=== PATIENT | female | born 1940 | race African-American/Black ===

== ENCOUNTER 2017-04-15 10:07 | Observation (INO) | payer OTHER ==
[2017-04-15 10:14] VITALS: BMI 32.5
--- NOTE | 2017-04-15 10:37 | DR.HTN ---
HPI - Time Seen Time seen: 10:35 - Primary Care Physician Primary Care Physician: DELMIS PARKER - HPI Comment HPI Comment: PATIENTS SYMTOMS GETTING WORSE. NO FEVER. NO N/V/D. SLIGHT DIZZINESS AND EXERSIONAL DYSPNEA. - Complaints Chief Complaint Doctors Comments: GENERALIZE WEAKNESS, FATIGUE, ELEVATED BP AND URINARY URGENCY SINCE YESTERDAY. Chief Complaint:: PT. C/O HIGH BLOOD PRESSURE, URINARY URGENCY, AND FATIGUE. - Reviewed Nurses Notes Reviewed: Yes - Source History Provided: Patient - Mode of Arrival Mode of Arrival: Ambulatory - Timing Onset of Chief Complaint: 04/14/17 - Severity Severity: Moderate - Context Circumstances: Spontaneous Onset Treatment of HTN Prior to Arrival: Taking meds as prescribed - Associated Signs and Symptoms HTN Associated Signs and Symptoms: Dizziness, Weakness, Shortness of Breath PMH - PMH Past Medical History: Yes Past Medical History: Asthma, Hypertension Past Surgical History: Yes Surgical History: Abdominal Surgery - Family History History of Family Medical Conditions: Yes Family Medical History: Heart Failure, Hypertension - Social History Does patient currently use any type of tobacco product: No Have you used tobacco products in the last 12 months: No Type of Tobacco Use: None Does any household member use tobacco: No Alcohol Use: None Do you use any recreational Drugs:: No Lives With: Spouse Lives Where: Home - infectious screening In the last 2 months have you had wt loss of >10#?: NO Have you had fever, night sweats or hemotysis?: No Have you traveled outside the country in the last 6 months?: No Isolation: Standard ROS - Review of Systems Constitutional: Weakness, Fatigue, Loss of Appetite. negative: Chills, Fever Eyes: No Symptoms Reported. negative: Eye Pain, Discharge ENTM: No Symptoms Reported. negative: Ear Pain, Nose Discharge, Nose Congestion , Throat Pain Respiratoy: Non-Productive Cough, Short of Breath. negative: Productive Cough, Wheezing, Hemoptysis Cardiovascular: Edema (TRACE). negative: Chest Pain Gastrointestinal/Abdominal: No Symptoms Reported. negative: Abdominal Pain, Diarrhea, Nausea, Vomiting Genitourinary: No Symptoms Reported. negative: Dysuria, Frequency, Hematuria Neurological: Weakness, Dizziness Musculoskeletal: Back Pain, Muscle Pain Integumentary: No Symptoms Reported Hematologic/Lymphatic: No Symptoms Reported Endocrine: No Symptoms Reported All Other Systems: Reviewed and Negative PE - Vital Signs Vitals: Temperature 98.1 F Pulse Rate [Left Radial] 58 Pulse Rate 94 Respiratory Rate 16 Blood Pressure [Left Arm] 156/98 Blood Pressure [Right Arm] 133/65 Blood Pressure 159/94 O2 Sat by Pulse Oximetry 96 - General Limitations: No Limitations General Appearance: Alert - Head Head Exam: Normal Inspection - Eyes Eye exam: Normal Appearance Pupils: Regular, Round: Bilateral, Reactive: Bilateral Sclera/Conjunctival: Normal Inspection: Bilateral - ENT ENT Exam: Normal External Ear Exam - Neck Neck Exam: Trachea Midline - Chest Chest Inspection: Symmetric Chest Wall Rise - Respiratory Respiratory Exam: Normal Lung Sounds Bilat Respiratory Exam: Bilateral Clear to Auscultation - Cardiovascular Cardiovascular Exam: Regular Rate, Normal Rhythm, Normal Heart Sounds - Abdominal Exam Abdominal Exam: Normal Bowel Sounds, Soft. negative: Tenderness - Extremities Extremities Exam: Edema - Back Back Exam: Normal Inspection - Neurologic Neurological Exam: Oriented X3 Speech: Fluid Speech Cranial Nerve Exam: EOM Function (II, III, IV, ): Normal, Facial Sensation (V) : Normal, Facial Palsy (VII): Normal, Gag reflex (XI): Normal, Spinal Accessory Function (XI): Normal, Tongue Deviation: Normal Motor Strength - LUE: 5/5 Motor Strength - RUE: 5/5 Motor Strength - LLE: 5/5 Motor Strength - RLE: 5/5 Upper Motor Neuron Exam: Babinski Sign: Normal DTR: achilles tendon (L): 4+, achilles tendon (R): 4+, brachioradialis (L): 4+, brachioradialis (R): 4+, Patellar (L): 4+, patellar (R): 4+ - Psychiatric Psychiatric Exam: Normal Affect, Normal Mood - Skin Skin Exam: Normal Color MDM - Differential Diagnosis Differential Diagnosis: CHF, Hyertension, essential Differential Diagnosis Comment: GENERALIZE WEAKNESS, RI, PNEUMONIA, UTI Course - Treatment Treatment: SEE ORDERS - Consultation Consultation Comments: DISCUSS PATIENT WITH DR. DAVIES. HE WILL ADMIT PATIENT. - Education/Counseling Education/Counseling: Patient, Education Educated On: Diagnosis ROR - Labs Reviewed Laboratory Results Reviewed?: Yes Result Diagrams: 04/16/17 03:10 04/16/17 03:10 Laboratory: WBC 6.3 X10^3/uL (3.6-10.0) 04/16/17 03:10 RBC 5.80 X10^6/uL (3.5-5.4) H 04/16/17 03:10 Hgb 13.0 g/dL (12.0-16.0) 04/16/17 03:10 Hct 41.1 % (36.0-47.0) 04/16/17 03:10 MCV 70.9 fL (80.0-100.0) L 04/16/17 03:10 MCH 22.5 pg (27.0-34.0) L 04/16/17 03:10 MCHC 31.7 g/dL (33.0-35.0) L 04/16/17 03:10 RDW 17.2 % (11.6-16.5) H 04/16/17 03:10 Plt Count 173 X10^3/uL (150.0-450.0) 04/16/17 03:10 Plt Count Comment Adequate (ADEQUATE) 04/16/17 03:10 MPV 9.7 fL (7.4-11.0) 04/16/17 03:10 Neut % 59.2 % (42.0-75.0) 04/16/17 03:10 Lymph % 28.8 % (21.0-51.0) 04/16/17 03:10 [place] % 9.5 % (0.0-13.0) 04/16/17 03:10 Eos % 2.3 % (0.9-2.9) 04/16/17 03:10 Baso % 0.2 % (0.2-1.0) 04/16/17 03:10 Neut # 3.7 x10^3/uL (2.2-4.8) 04/16/17 03:10 Lymph # 1.8 X10^3/uL (1.3-2.9) 04/16/17 03:10 [place] # 0.6 x10^3/uL (0.3-0.8) 04/16/17 03:10 Eos # 0.1 x10^3/uL (0.0-0.2) 04/16/17 03:10 Baso # 0.0 X10^3/uL (0.0-0.1) 04/16/17 03:10 Absolute Nucleated RBC 0.1 /100WBC 04/16/17 03:10 Plt Morphology Comment Normal (NORMAL) 04/16/17 03:10 RBC Morphology Abnormal (NORMAL) A 04/16/17 03:10 Hypochromasia 1+ A 04/16/17 03:10 Microcytosis 1+ A 04/15/17 10:50 Sodium 142 mmol/L (136-145) 04/16/17 03:10 Corrected Sodium TNP 04/16/17 03:10 Potassium 4.0 mmol/L (3.5-5.1) 04/16/17 03:10 Chloride 107 mmol/L (98-107) 04/16/17 03:10 Carbon Dioxide 27.3 mmol/L (21-32) 04/16/17 03:10 BUN 14 mg/dL (7-18) 04/16/17 03:10 Creatinine 0.95 mg/dL (0.55-1.02) 04/16/17 03:10 Est GFR (MDRD) Af Amer > 60 (>60) 04/16/17 03:10 Est GFR (MDRD) Non-Af > 60 (>60) 04/16/17 03:10 Glucose 88 mg/dL (65-99) 04/16/17 03:10 Calcium 8.7 mg/dL (8.5-10.1) 04/16/17 03:10 Corrected Calcium 9.7 mg/dL (8.5-10.1) 04/16/17 03:10 Total Bilirubin 0.40 mg/dL (0.2-1.0) 04/16/17 03:10 AST 17 Units/L (15-37) 04/16/17 03:10 ALT 26 Units/L (12-78) 04/16/17 03:10 Alkaline Phosphatase 63 Units/L (46-116) 04/16/17 03:10 Creatine Kinase 126 Units/L (26-192) 04/15/17 22:40 CK-MB (CK-2) 1.5 ng/mL (0-4.0) 04/15/17 22:40 CK/CKMB % Calc 1.2 % (<4) 04/15/17 22:40 Troponin I < 0.02 ng/mL (0-1.5) 04/15/17 22:40 Total Protein 6.6 g/dL (6.4-8.2) 04/16/17 03:10 Albumin 2.8 g/dL (3.4-5.0) L 04/16/17 03:10 Globulin 3.8 g/dL (2.5-4.5) 04/16/17 03:10 Albumin/Globulin Ratio 0.7 Ratio (1.1-2.1) L 04/16/17 03:10 Triglycerides 94 mg/dL (0-150) 04/16/17 03:10 Cholesterol 157 mg/dL (0-200) 04/16/17 03:10 LDL Cholesterol, Calc 97 mg/dL (0-100) 04/16/17 03:10 HDL Cholesterol 41 mg/dL (40-60) 04/16/17 03:10 Cholesterol/HDL Ratio 3.8 (0.0-5.0) 04/16/17 03:10 Specimen Type Clean catch urine 04/15/17 13:16 Urine Color Yellow (YELLOW) 04/15/17 13:16 Urine Appearance Clear (CLEAR) 04/15/17 13:16 Urine pH 6.0 (5.0 - 8.0) 04/15/17 13:16 Ur Specific [place] 1.015 (1.000-1.030) 04/15/17 13:16 Urine Protein Negative (NEGATIVE) 04/15/17 13:16 Urine Glucose (UA) Negative (NEGATIVE) 04/15/17 13:16 Urine Ketones Negative (NEGATIVE) 04/15/17 13:16 Urine Occult Blood 1+ (NEGATIVE) 04/15/17 13:16 Urine Nitrite Negative (NEGATIVE) 04/15/17 13:16 Urine Bilirubin Negative (NEGATIVE) 04/15/17 13:16 Urine Urobilinogen Normal (NORMAL) 04/15/17 13:16 Ur Leukocyte Esterase Negative (NEGATIVE) 04/15/17 13:16 Urine RBC Rare /HPF (NEGATIVE) 04/15/17 13:16 Urine WBC Rare /HPF (NEGATIVE) 04/15/17 13:16 Ur Squamous Epith Cells Negative /HPF (NEGATIVE) 04/15/17 13:16 Urine Bacteria Negative /HPF (NEGATIVE) 04/15/17 13:16 Ur Culture Indicated? No/not indicated 04/15/17 13:16 - XRAY XRAY Interpreted by: Radiologist XRAY Findings: REPORT DISCUSS WITH PATIENT. - EKG Rhythm: NSR (EKG NOTED) ST: Ischemia - Diagnosis Discharge Problem: Abnormal EKG, Generalized weakness - Discharge Plan Disposition: 09 ADMITTED INPATIENT Condition: Stable - Follow ups/Referrals - Instructions
[2017-04-15] MEDS ORDERED: CATAPRES TAB 0.1 MG PO ONE (11:35)
[2017-04-15] MEDS ORDERED: CATAPRES TAB 0.1 MG ONE (11:38)
[2017-04-15 11:45] LABS: BASOPHILS % (AUTO) 0.3 % (0.2-1.0); EOSINOPHILS # (AUTO) 0.1 x10^3/uL (0.0-0.2); EOSINOPHILS % (AUTO) 1.8 % (0.9-2.9); HEMATOCRIT 41.1 % (36.0-47.0); HEMOGLOBIN 13.4 g/dL (12.0-16.0); LYMPHOCYTES # (AUTO) 1.2 X10^3/uL (1.3-2.9); LYMPHOCYTES % (AUTO) 19.4 % (21.0-51.0); MEAN CORPUSCULAR HEMOGLOBIN 22.9 pg (27.0-34.0); MEAN CORPUSCULAR HGB CONC 32.6 g/dL (33.0-35.0); MEAN CORPUSCULAR VOLUME 70.1 fL (80.0-100.0); MEAN PLATELET VOLUME 9.7 fL (7.4-11.0); MONOCYTES # (AUTO) 0.5 x10^3/uL (0.3-0.8); MONOCYTES % (AUTO) 7.7 % (0.0-13.0); NEUTROPHILS # (AUTO) 4.3 x10^3/uL (2.2-4.8); NEUTROPHILS % (AUTO) 70.8 % (42.0-75.0); PLATELET COUNT 174 X10^3/uL (150.0-450.0); RED BLOOD COUNT 5.87 X10^6/uL (3.5-5.4); WHITE BLOOD COUNT 6.1 X10^3/uL (3.6-10.0)
[2017-04-15 11:53] LABS: HYPOCHROMASIA 1+; MICROCYTOSIS 1+; PLATELET MORPHOLOGY COMMENT NORMAL (NORMAL)
[2017-04-15 11:58] LABS: BLOOD UREA NITROGEN 13 mg/dL (7-18); CALCIUM 8.9 mg/dL (8.5-10.1); CARBON DIOXIDE 25.7 mmol/L (21-32); CHLORIDE 107 mmol/L (98-107); COR NA(FOR HYPERGLY) 141 mmol/L (136-145); CREATININE 1.04 mg/dL (0.55-1.02); GLUCOSE 123 mg/dL (65-99); SODIUM 140 mmol/L (136-145); TROPONIN I < 0.02 ng/mL (0-1.5); eGFR BLACK RACES > 60 (>60); eGFR NON BLACK RACES 55 (>60)
[2017-04-15 12:02] LABS: ALANINE AMINOTRANSFERASE 28 Units/L (12-78); ALKALINE PHOSPHATASE 75 Units/L (46-116); ASPARTATE AMINO TRANSFERASE 20 Units/L (15-37); CKMB % 1.2 % (<4); COR CA(FOR HYPOALB) 9.7 mg/dL (8.5-10.1); CREATINE KINASE 112 Units/L (26-192); CREATINE KINASE MB 1.3 ng/mL (0-4.0)
[2017-04-15] MEDS ORDERED: ASPIRIN 81 MG CHEWTAB PO ONE (13:29)
[2017-04-15 13:34] LABS: BILIRUBIN,URINE NEGATIVE (NEGATIVE); BLOOD/HEMOGLOBIN,URINE 1+ (NEGATIVE); GLUCOSE, URINE NEGATIVE (NEGATIVE); KETONES,URINE NEGATIVE (NEGATIVE); LEUKOCYTE ESTERASE ,URINE NEGATIVE (NEGATIVE); NITRITES,URINE NEGATIVE (NEGATIVE); PROTEIN,URINE NEGATIVE (NEGATIVE); UROBILINOGEN,URINE NORMAL (NORMAL)
[2017-04-15 13:43] LABS: APPEARANCE,URINE CLEAR (CLEAR); BACTERIA,URINE NEGATIVE /HPF (NEGATIVE); COLOR,URINE YELLOW (YELLOW); RBC,URINE RARE /HPF (NEGATIVE); SQUAMOUS EPITHELIAL CELL,UR NEGATIVE /HPF (NEGATIVE)
--- NOTE | 2017-04-15 16:34 | RAD ---
HISTORY: Chest pain Study: Portable chest Comparison: 04/13/2015 Findings: The heart is normal. The pulmonary vessels are normal. The lungs are hypoinflated with mild linear d ensities along the lung bases which are slightly more prominent. No obvious consolidation or effusio n is seen and the bones are intact.. IMPRESSION: Hypoinflation limiting the exam with mild discoid atelectasis or scarring along the lung bases which is slightly more apparent. Reported By:
[2017-04-15 17:52] LABS: CKMB % 1.1 % (<4); CREATINE KINASE 120 Units/L (26-192); CREATINE KINASE MB 1.3 ng/mL (0-4.0); TROPONIN I < 0.02 ng/mL (0-1.5)
[2017-04-15] MEDS: CATAPRES TAB 0.1 MG PO SCH (20:49)
[2017-04-15 23:16] LABS: CKMB % 1.2 % (<4); CREATINE KINASE 126 Units/L (26-192); CREATINE KINASE MB 1.5 ng/mL (0-4.0); TROPONIN I < 0.02 ng/mL (0-1.5)
[2017-04-16 06:07] LABS: ALANINE AMINOTRANSFERASE 26 Units/L (12-78); ALBUMIN 2.8 g/dL (3.4-5.0); ALKALINE PHOSPHATASE 63 Units/L (46-116); ASPARTATE AMINO TRANSFERASE 17 Units/L (15-37); BLOOD UREA NITROGEN 14 mg/dL (7-18); CALCIUM 8.7 mg/dL (8.5-10.1); CARBON DIOXIDE 27.3 mmol/L (21-32); CHLORIDE 107 mmol/L (98-107); CHOL/HDL RATIO 3.8 (0.0-5.0); CHOLESTEROL 157 mg/dL (0-200); COR CA(FOR HYPOALB) 9.7 mg/dL (8.5-10.1); CREATININE 0.95 mg/dL (0.55-1.02); GLUCOSE 88 mg/dL (65-99); HDL CHOLESTEROL 41 mg/dL (40-60); SODIUM 142 mmol/L (136-145); TOTAL PROTEIN 6.6 g/dL (6.4-8.2); TRIGLYCERIDES 94 mg/dL (0-150); eGFR BLACK RACES > 60 (>60); eGFR NON BLACK RACES > 60 (>60)
[2017-04-16 06:15] LABS: BASOPHILS % (AUTO) 0.2 % (0.2-1.0); EOSINOPHILS # (AUTO) 0.1 x10^3/uL (0.0-0.2); EOSINOPHILS % (AUTO) 2.3 % (0.9-2.9); HEMATOCRIT 41.1 % (36.0-47.0); LYMPHOCYTES # (AUTO) 1.8 X10^3/uL (1.3-2.9); LYMPHOCYTES % (AUTO) 28.8 % (21.0-51.0); MEAN CORPUSCULAR HEMOGLOBIN 22.5 pg (27.0-34.0); MEAN CORPUSCULAR HGB CONC 31.7 g/dL (33.0-35.0); MEAN CORPUSCULAR VOLUME 70.9 fL (80.0-100.0); MEAN PLATELET VOLUME 9.7 fL (7.4-11.0); MONOCYTES # (AUTO) 0.6 x10^3/uL (0.3-0.8); MONOCYTES % (AUTO) 9.5 % (0.0-13.0); NEUTROPHILS # (AUTO) 3.7 x10^3/uL (2.2-4.8); NEUTROPHILS % (AUTO) 59.2 % (42.0-75.0); PLATELET COUNT 173 X10^3/uL (150.0-450.0); RED CELL DISTRIBUTION WIDTH 17.2 % (11.6-16.5); WHITE BLOOD COUNT 6.3 X10^3/uL (3.6-10.0)
[2017-04-16 07:09] LABS: HYPOCHROMASIA 1+; PLATELET MORPHOLOGY COMMENT NORMAL (NORMAL)
[2017-04-16] MEDS: ZESTRIL TAB 40 MG PO SCH (08:57)
[2017-04-16] MEDS: CATAPRES TAB 0.1 MG PO SCH ×2 (08:58→20:26)
[2017-04-16] MEDS ORDERED: APRESOLINE INJ 20 MG VIAL IVP PRN (08:59)
[2017-04-16] MEDS ORDERED: MULTIPLE VITAMINS PO SCH (13:30)
[2017-04-16] MEDS ORDERED: MINERALS PO SCH (13:30)
[2017-04-16] MEDS ORDERED: ZESTRIL TAB 40 MG PO SCH (14:00)
[2017-04-16] MEDS: TAB-A-VITE PO SCH (14:47)
[2017-04-16] MEDS: VITAMIN B-12 PO SCH (14:47)
--- NOTE | 2017-04-16 17:46 | CT ---
HISTORY: Hypertension, dizziness, hyperlipidemia Study: CT brain without contrast Comparison: MRI 01/11/2015 Technique: Multiple axial images of the brain were obtained from the skull base to the vertex without administr ation of IV contrast. Dose reduction techniques including Automated Exposure Control (AEC) and adju stment of mA and kV were utilized. Findings: There is mild atrophy and moderate nonspecific white matter hypoattenuation likely on the basis of m icrovascular ischemic changes. No evidence of acute hemorrhage, midline shift, mass effect or abnor mal extra-axial fluid collection. The ventricular system is symmetric and nondilated. The soft tis sues and osseous structures are unremarkable. The visualized paranasal sinuses are clear. IMPRESSION: 1. Chronic atrophy and probable microvascular ischemic changes; no acute intracranial abnormality id entified. Reported By:
--- NOTE | 2017-04-16 18:20 | DR.H&P ---
H&P - History & Physical for Day of: H&P Date: 04/15/17 - Chief Complaint Chief Complaint: WHITLEY, DIZZINESS, ELEVATED BLOOD PRESSURE - Allergies Allergies/Adverse Reactions: Allergies Allergy/AdvReac Type Severity Reaction Status Date / Time No Known Drug Allergy Allergy Verified 04/15/17 10:12 - History of Present Illness History of Present Illness: 76 BF ADMITTED FROM ER AFTER PRESENTING WITH ELEVATED BP WHITLEY AND DIZZINESS. PT STATES SHE FELT WEAK. PT REPORTS BP GREATER THAN 200/100 HOME. PLAN TO ADMIT, SERIAL CE, BP CONTROL WITH CATAPRES AND IV HYDRALAZINE. RESUME HOME MEDS - Past Medical History Past Medical History: Asthma, Hypertension - Past Surgical History Surgical History: Abdominal Surgery - Family History Family Medical History: Heart Failure, Hypertension - Social History Does patient currently use any type of tobacco product: No Have you used tobacco products in the last 12 months: No Type of Tobacco Use: None Does any household member use tobacco: No Alcohol Use: None Drug Use: Prescription Drugs - Medications Home Medications: Cyanocobalamin [Vitamin B-12] 500 mcg PO DAILY 04/15/17 [History Confirmed 04/15] Multiple Vitamin [Once Daily] 1 tab PO DAILY 04/15/17 [History Confirmed ] Multiple Vitamins W/ Minerals [Multi Adult Gummies] 1 chw PO DAILY 04/15/17 [ History Confirmed 04/15/17] - Review of Systems Constitutional: Weakness, Malaise Eyes: No Symptoms Reported ENT: No Symptoms Reported Respiratory: No Symptoms Reported Cardiovascular: Chest Pain (CHEST PRESSURE) Gastrointestinal: No Symptoms Reported Genitourinary: No Symptoms Reported Musculoskeletal: No Symptoms Reported Skin: No Symptoms Reported Neurological: Weakness - Physical Exam Vital Signs: Temperature 97.8 F Pulse Rate [Left Radial] 64 Respiratory Rate 20 Blood Pressure [Right Arm] 164/79 O2 Sat by Pulse Oximetry 95 Oriented: Normal Eyes: Normal Ear: Normal Nose: Normal Throat: Normal Respiratory: Clear Throughout Cardiovascular: Normal, Edema (+ 1 BILATERAL LOWER EXTREMITY EDEMA) : Normal Auscultation: Bowel Sounds: Normal Palpation: Normal Tenderness: Normal Skin: Normal Musculoskeletal: Back:Lumbar Mood Description: Calm Speech Pattern: Clear, Appropriate - Assessment/Plan (1) Hypertensive urgency Status: Acute Plan: ADMIT SERIAL CE'S AND EKGS. TELEMERTY, SUPPLEMENTAL O2,. BP AND LIPID CONTROL. IV HYDRALAZINE, PO CATAPRES (2) Abnormal EKG Status: Acute (3) Generalized weakness Status: Acute (4) Dizziness Status: Acute (5) Essential hypertension Status: Acute
--- NOTE | 2017-04-16 18:27 | PCM.PROG ---
Progress Note - Progress Note for Day of Date: 04/16/17 - Subjective Subjective: WHITLEY, DIZZINESS - Past Medical Family Social History Past Med/Fam/Surg Hx: No changes since H&P Allergies: Allergies No Known Drug Allergy Allergy (Verified 04/15/17 10:12) - Review of Systems ROS: No change since H&P - Vital Signs and I&O's Vital Signs: Temperature 97.8 F Pulse Rate [Left Radial] 64 Respiratory Rate 20 Blood Pressure [Right Arm] 164/79 O2 Sat by Pulse Oximetry 95 Intake and Output: Intake & Output 04/14/17 04/15/17 04/16/17 04/17/17 11:59 11:59 11:59 11:59 Intake Total 860 840 Balance 860 840 - Physical Exam Oriented: Normal Eyes: Normal Ear: Normal Nose: Normal Throat: Normal Cardiovascular: Normal, Edema (+ 1 BILATERAL LOWER EXTREMITY EDEMA) : Normal Auscultation: Bowel Sounds: Normal Tenderness: Normal Skin: Normal Musculoskeletal: Back:Lumbar Mood Description: Calm Speech Pattern: Clear, Appropriate - Laboratory and Diagnostics Result Diagrams: 04/16/17 03:10 04/16/17 03:10 Labs: Laboratory WBC 6.3 X10^3/uL (3.6-10.0) 04/16/17 03:10 RBC 5.80 X10^6/uL (3.5-5.4) H 04/16/17 03:10 Hgb 13.0 g/dL (12.0-16.0) 04/16/17 03:10 Hct 41.1 % (36.0-47.0) 04/16/17 03:10 MCV 70.9 fL (80.0-100.0) L 04/16/17 03:10 MCH 22.5 pg (27.0-34.0) L 04/16/17 03:10 MCHC 31.7 g/dL (33.0-35.0) L 04/16/17 03:10 RDW 17.2 % (11.6-16.5) H 04/16/17 03:10 Plt Count 173 X10^3/uL (150.0-450.0) 04/16/17 03:10 Plt Count Comment Adequate (ADEQUATE) 04/16/17 03:10 MPV 9.7 fL (7.4-11.0) 04/16/17 03:10 Neut % 59.2 % (42.0-75.0) 04/16/17 03:10 Lymph % 28.8 % (21.0-51.0) 04/16/17 03:10 [place] % 9.5 % (0.0-13.0) 04/16/17 03:10 Eos % 2.3 % (0.9-2.9) 04/16/17 03:10 Baso % 0.2 % (0.2-1.0) 04/16/17 03:10 Neut # 3.7 x10^3/uL (2.2-4.8) 04/16/17 03:10 Lymph # 1.8 X10^3/uL (1.3-2.9) 04/16/17 03:10 [place] # 0.6 x10^3/uL (0.3-0.8) 04/16/17 03:10 Eos # 0.1 x10^3/uL (0.0-0.2) 04/16/17 03:10 Baso # 0.0 X10^3/uL (0.0-0.1) 04/16/17 03:10 Absolute Nucleated RBC 0.1 /100WBC 04/16/17 03:10 Plt Morphology Comment Normal (NORMAL) 04/16/17 03:10 RBC Morphology Abnormal (NORMAL) A 04/16/17 03:10 Hypochromasia 1+ A 04/16/17 03:10 Microcytosis 1+ A 04/15/17 10:50 Sodium 142 mmol/L (136-145) 04/16/17 03:10 Corrected Sodium TNP 04/16/17 03:10 Potassium 4.0 mmol/L (3.5-5.1) 04/16/17 03:10 Chloride 107 mmol/L (98-107) 04/16/17 03:10 Carbon Dioxide 27.3 mmol/L (21-32) 04/16/17 03:10 BUN 14 mg/dL (7-18) 04/16/17 03:10 Creatinine 0.95 mg/dL (0.55-1.02) 04/16/17 03:10 Est GFR (MDRD) Af Amer > 60 (>60) 04/16/17 03:10 Est GFR (MDRD) Non-Af > 60 (>60) 04/16/17 03:10 Glucose 88 mg/dL (65-99) 04/16/17 03:10 Calcium 8.7 mg/dL (8.5-10.1) 04/16/17 03:10 Corrected Calcium 9.7 mg/dL (8.5-10.1) 04/16/17 03:10 Total Bilirubin 0.40 mg/dL (0.2-1.0) 04/16/17 03:10 AST 17 Units/L (15-37) 04/16/17 03:10 ALT 26 Units/L (12-78) 04/16/17 03:10 Alkaline Phosphatase 63 Units/L (46-116) 04/16/17 03:10 Creatine Kinase 126 Units/L (26-192) 04/15/17 22:40 CK-MB (CK-2) 1.5 ng/mL (0-4.0) 04/15/17 22:40 CK/CKMB % Calc 1.2 % (<4) 04/15/17 22:40 Troponin I < 0.02 ng/mL (0-1.5) 04/15/17 22:40 Total Protein 6.6 g/dL (6.4-8.2) 04/16/17 03:10 Albumin 2.8 g/dL (3.4-5.0) L 04/16/17 03:10 Globulin 3.8 g/dL (2.5-4.5) 04/16/17 03:10 Albumin/Globulin Ratio 0.7 Ratio (1.1-2.1) L 04/16/17 03:10 Triglycerides 94 mg/dL (0-150) 04/16/17 03:10 Cholesterol 157 mg/dL (0-200) 04/16/17 03:10 LDL Cholesterol, Calc 97 mg/dL (0-100) 04/16/17 03:10 HDL Cholesterol 41 mg/dL (40-60) 04/16/17 03:10 Cholesterol/HDL Ratio 3.8 (0.0-5.0) 04/16/17 03:10 Specimen Type Clean catch urine 04/15/17 13:16 Urine Color Yellow (YELLOW) 04/15/17 13:16 Urine Appearance Clear (CLEAR) 04/15/17 13:16 Urine pH 6.0 (5.0 - 8.0) 04/15/17 13:16 Ur Specific [place] 1.015 (1.000-1.030) 04/15/17 13:16 Urine Protein Negative (NEGATIVE) 04/15/17 13:16 Urine Glucose (UA) Negative (NEGATIVE) 04/15/17 13:16 Urine Ketones Negative (NEGATIVE) 04/15/17 13:16 Urine Occult Blood 1+ (NEGATIVE) 04/15/17 13:16 Urine Nitrite Negative (NEGATIVE) 04/15/17 13:16 Urine Bilirubin Negative (NEGATIVE) 04/15/17 13:16 Urine Urobilinogen Normal (NORMAL) 04/15/17 13:16 Ur Leukocyte Esterase Negative (NEGATIVE) 04/15/17 13:16 Urine RBC Rare /HPF (NEGATIVE) 04/15/17 13:16 Urine WBC Rare /HPF (NEGATIVE) 04/15/17 13:16 Ur Squamous Epith Cells Negative /HPF (NEGATIVE) 04/15/17 13:16 Urine Bacteria Negative /HPF (NEGATIVE) 04/15/17 13:16 Ur Culture Indicated? No/not indicated 04/15/17 13:16 - Plan (1) Hypertensive urgency Status: Acute Plan: TELEMERTY, SUPPLEMENTAL O2,. BP AND LIPID CONTROL. IV HYDRALAZINE, PO CATAPRES (2) Abnormal EKG Status: Acute (3) Generalized weakness Status: Acute (4) Dizziness Status: Acute Plan: CT HEAD, CTA CAROTIDS (5) Essential hypertension Status: Acute
[2017-04-16] MEDS: NORVASC TAB 10 MG PO SCH (20:26)
[2017-04-17] MEDS ORDERED: TAB-A-VITE PO SCH (09:00)
[2017-04-17] MEDS: ZESTRIL TAB 40 MG PO SCH (09:39)
[2017-04-17] MEDS: VITAMIN B-12 PO SCH (09:39)
[2017-04-17] MEDS: NORVASC TAB 10 MG PO SCH (09:39)
[2017-04-17] MEDS: CATAPRES TAB 0.1 MG PO SCH ×2 (09:39→21:16)
[2017-04-17] MEDS: TAB-A-VITE PO SCH (09:39)
[2017-04-17] MEDS ORDERED: NS 100 ML IV 100 ML IV ONE (15:46)
[2017-04-17] MEDS ORDERED: LASIX PO NR (17:00)
--- NOTE | 2017-04-17 17:39 | PCM.PROG ---
Progress Note - Progress Note for Day of Date: 04/17/17 - Subjective Subjective: WHITLEY, DIZZINESS IMPROVING, BP ELEVATED. PT TO HAVE CTA CAROTIDS TODAY - Past Medical Family Social History Past Med/Fam/Surg Hx: No changes since H&P Allergies: Allergies No Known Drug Allergy Allergy (Verified 04/15/17 10:12) - Review of Systems ROS: No change since H&P - Vital Signs and I&O's Vital Signs: Temperature 97.7 F Pulse Rate [Left Radial] 101 Respiratory Rate 20 Blood Pressure [Right Arm] 172/94 O2 Sat by Pulse Oximetry 93 Intake and Output: Intake & Output 04/15/17 04/16/17 04/17/17 04/18/17 11:59 11:59 11:59 11:59 Intake Total 860 960 20 Balance 860 960 20 - Physical Exam Oriented: Normal Eyes: Normal Ear: Normal Nose: Normal Throat: Normal Respiratory: Normal Cardiovascular: Normal, Edema (+ 1 BILATERAL LOWER EXTREMITY EDEMA) : Normal Auscultation: Bowel Sounds: Normal Tenderness: Normal Skin: Normal Musculoskeletal: Back:Lumbar Mood Description: Calm Speech Pattern: Clear, Appropriate - Laboratory and Diagnostics Result Diagrams: 04/16/17 03:10 04/16/17 03:10 Labs: Laboratory WBC 6.3 X10^3/uL (3.6-10.0) 04/16/17 03:10 RBC 5.80 X10^6/uL (3.5-5.4) H 04/16/17 03:10 Hgb 13.0 g/dL (12.0-16.0) 04/16/17 03:10 Hct 41.1 % (36.0-47.0) 04/16/17 03:10 MCV 70.9 fL (80.0-100.0) L 04/16/17 03:10 MCH 22.5 pg (27.0-34.0) L 04/16/17 03:10 MCHC 31.7 g/dL (33.0-35.0) L 04/16/17 03:10 RDW 17.2 % (11.6-16.5) H 04/16/17 03:10 Plt Count 173 X10^3/uL (150.0-450.0) 04/16/17 03:10 Plt Count Comment Adequate (ADEQUATE) 04/16/17 03:10 MPV 9.7 fL (7.4-11.0) 04/16/17 03:10 Neut % 59.2 % (42.0-75.0) 04/16/17 03:10 Lymph % 28.8 % (21.0-51.0) 04/16/17 03:10 [place] % 9.5 % (0.0-13.0) 04/16/17 03:10 Eos % 2.3 % (0.9-2.9) 04/16/17 03:10 Baso % 0.2 % (0.2-1.0) 04/16/17 03:10 Neut # 3.7 x10^3/uL (2.2-4.8) 04/16/17 03:10 Lymph # 1.8 X10^3/uL (1.3-2.9) 04/16/17 03:10 [place] # 0.6 x10^3/uL (0.3-0.8) 04/16/17 03:10 Eos # 0.1 x10^3/uL (0.0-0.2) 04/16/17 03:10 Baso # 0.0 X10^3/uL (0.0-0.1) 04/16/17 03:10 Absolute Nucleated RBC 0.1 /100WBC 04/16/17 03:10 Plt Morphology Comment Normal (NORMAL) 04/16/17 03:10 RBC Morphology Abnormal (NORMAL) A 04/16/17 03:10 Hypochromasia 1+ A 04/16/17 03:10 Microcytosis 1+ A 04/15/17 10:50 Sodium 142 mmol/L (136-145) 04/16/17 03:10 Corrected Sodium TNP 04/16/17 03:10 Potassium 4.0 mmol/L (3.5-5.1) 04/16/17 03:10 Chloride 107 mmol/L (98-107) 04/16/17 03:10 Carbon Dioxide 27.3 mmol/L (21-32) 04/16/17 03:10 BUN 14 mg/dL (7-18) 04/16/17 03:10 Creatinine 0.95 mg/dL (0.55-1.02) 04/16/17 03:10 Est GFR (MDRD) Af Amer > 60 (>60) 04/16/17 03:10 Est GFR (MDRD) Non-Af > 60 (>60) 04/16/17 03:10 Glucose 88 mg/dL (65-99) 04/16/17 03:10 Calcium 8.7 mg/dL (8.5-10.1) 04/16/17 03:10 Corrected Calcium 9.7 mg/dL (8.5-10.1) 04/16/17 03:10 Iron 62 ug/dL (50-175) 04/16/17 03:10 Transferrin 169 mg/dL (202-364) L 04/16/17 03:10 Ferritin 172 ng/mL (8-252) 04/16/17 03:10 Total Bilirubin 0.40 mg/dL (0.2-1.0) 04/16/17 03:10 AST 17 Units/L (15-37) 04/16/17 03:10 ALT 26 Units/L (12-78) 04/16/17 03:10 Alkaline Phosphatase 63 Units/L (46-116) 04/16/17 03:10 Creatine Kinase 126 Units/L (26-192) 04/15/17 22:40 CK-MB (CK-2) 1.5 ng/mL (0-4.0) 04/15/17 22:40 CK/CKMB % Calc 1.2 % (<4) 04/15/17 22:40 Troponin I < 0.02 ng/mL (0-1.5) 04/15/17 22:40 Total Protein 6.6 g/dL (6.4-8.2) 04/16/17 03:10 Albumin 2.8 g/dL (3.4-5.0) L 04/16/17 03:10 Globulin 3.8 g/dL (2.5-4.5) 04/16/17 03:10 Albumin/Globulin Ratio 0.7 Ratio (1.1-2.1) L 04/16/17 03:10 Triglycerides 94 mg/dL (0-150) 04/16/17 03:10 Cholesterol 157 mg/dL (0-200) 04/16/17 03:10 LDL Cholesterol, Calc 97 mg/dL (0-100) 04/16/17 03:10 HDL Cholesterol 41 mg/dL (40-60) 04/16/17 03:10 Cholesterol/HDL Ratio 3.8 (0.0-5.0) 04/16/17 03:10 Vitamin B12 536 pg/mL (193-986) 04/16/17 03:10 Folate 19.4 ng/mL (>8.6) 04/16/17 03:10 Specimen Type Clean catch urine 04/15/17 13:16 Urine Color Yellow (YELLOW) 04/15/17 13:16 Urine Appearance Clear (CLEAR) 04/15/17 13:16 Urine pH 6.0 (5.0 - 8.0) 04/15/17 13:16 Ur Specific [place] 1.015 (1.000-1.030) 04/15/17 13:16 Urine Protein Negative (NEGATIVE) 04/15/17 13:16 Urine Glucose (UA) Negative (NEGATIVE) 04/15/17 13:16 Urine Ketones Negative (NEGATIVE) 04/15/17 13:16 Urine Occult Blood 1+ (NEGATIVE) 04/15/17 13:16 Urine Nitrite Negative (NEGATIVE) 04/15/17 13:16 Urine Bilirubin Negative (NEGATIVE) 04/15/17 13:16 Urine Urobilinogen Normal (NORMAL) 04/15/17 13:16 Ur Leukocyte Esterase Negative (NEGATIVE) 04/15/17 13:16 Urine RBC Rare /HPF (NEGATIVE) 04/15/17 13:16 Urine WBC Rare /HPF (NEGATIVE) 04/15/17 13:16 Ur Squamous Epith Cells Negative /HPF (NEGATIVE) 04/15/17 13:16 Urine Bacteria Negative /HPF (NEGATIVE) 04/15/17 13:16 Ur Culture Indicated? No/not indicated 04/15/17 13:16 - Plan (1) Hypertensive urgency Status: Acute Plan: TELEMERTY, SUPPLEMENTAL O2,. BP AND LIPID CONTROL. IV HYDRALAZINE, PO CATAPRES (2) Abnormal EKG Status: Acute Plan: REPEAT EKG (3) Generalized weakness Status: Acute (4) Dizziness Status: Acute Plan: CT HEAD, CTA CAROTIDS (5) Essential hypertension Status: Acute
[2017-04-18 06:27] LABS: BASOPHILS % (AUTO) 0.3 % (0.2-1.0); EOSINOPHILS # (AUTO) 0.1 x10^3/uL (0.0-0.2); EOSINOPHILS % (AUTO) 1.7 % (0.9-2.9); HEMATOCRIT 41.5 % (36.0-47.0); HEMOGLOBIN 13.3 g/dL (12.0-16.0); LYMPHOCYTES # (AUTO) 1.6 X10^3/uL (1.3-2.9); MEAN CORPUSCULAR HEMOGLOBIN 22.5 pg (27.0-34.0); MEAN CORPUSCULAR HGB CONC 32.2 g/dL (33.0-35.0); MEAN CORPUSCULAR VOLUME 69.8 fL (80.0-100.0); MEAN PLATELET VOLUME 9.5 fL (7.4-11.0); MONOCYTES # (AUTO) 0.6 x10^3/uL (0.3-0.8); MONOCYTES % (AUTO) 8.5 % (0.0-13.0); NEUTROPHILS # (AUTO) 4.8 x10^3/uL (2.2-4.8); NEUTROPHILS % (AUTO) 67.5 % (42.0-75.0); PLATELET COUNT 184 X10^3/uL (150.0-450.0); RED BLOOD COUNT 5.94 X10^6/uL (3.5-5.4); RED CELL DISTRIBUTION WIDTH 16.9 % (11.6-16.5); WHITE BLOOD COUNT 7.1 X10^3/uL (3.6-10.0)
[2017-04-18 07:18] LABS: ALANINE AMINOTRANSFERASE 28 Units/L (12-78); ALBUMIN 2.9 g/dL (3.4-5.0); ALKALINE PHOSPHATASE 72 Units/L (46-116); ASPARTATE AMINO TRANSFERASE 23 Units/L (15-37); BLOOD UREA NITROGEN 21 mg/dL (7-18); CALCIUM 9.2 mg/dL (8.5-10.1); CARBON DIOXIDE 24.1 mmol/L (21-32); CHLORIDE 106 mmol/L (98-107); COR CA(FOR HYPOALB) 10.1 mg/dL (8.5-10.1); CREATININE 1.05 mg/dL (0.55-1.02); GLUCOSE 86 mg/dL (65-99); SODIUM 141 mmol/L (136-145); TOTAL PROTEIN 6.9 g/dL (6.4-8.2); eGFR BLACK RACES > 60 (>60); eGFR NON BLACK RACES 54 (>60)
[2017-04-18 07:35] LABS: HYPOCHROMASIA 1+; MICROCYTOSIS 1+; PLATELET MORPHOLOGY COMMENT NORMAL (NORMAL)
--- NOTE | 2017-04-18 09:16 | CT ---
HISTORY: Hypertension, dizziness, hyperlipidemia. Study: CT soft tissue neck with contrast Comparison: Carotid ultrasound dated Mar 29 1015. Technique: Multiple axial images of the soft tissue neck were obtained from skull base to the aortic arch after the administration of IV contrast. Sagittal and coronal reformats were performed and re viewed. Dose reduction techniques including Automated Exposure Control (AEC) and adjustment of mA a nd kV were utilized. Findings: The visualized portions of the posterior fossa and orbits are unremarkable in appearance. Multinodul ar quarter that does not appear significantly changed given technique from comparison carotid ultras ound. The parotid glands, and submandibular glands are unremarkable in their contrast appearance. T he carotid space on the right and left is unremarkable. No mass or significant lymphadenopathy can be identified. The prevertebral and paraspinous regions are unremarkable. The nasopharynx, orophar ynx, hypopharynx are unremarkable. The larynx appears symmetric. Tortuous course of the right inte rnal carotid artery. Otherwise, the vascular structures are unremarkable in their appearance. The a ortic arch is unremarkable. The visualized portions of the mediastinum are unremarkable as well. D egenerative changes of the cervical spine. The osseous structures are otherwise intact. The visualiz ed portions of the lung apex on the right and left are unremarkable as well. IMPRESSION: 1. No acute pathology of the neck. 2. Multinodular goiter as above. Consider dedicated thyroid ultrasound for further characterization. Reported By:
[2017-04-18] MEDS: VITAMIN B-12 PO SCH (10:06)
[2017-04-18] MEDS: ZESTRIL TAB 40 MG PO SCH (10:06)
[2017-04-18] MEDS: NORVASC TAB 10 MG PO SCH (10:06)
[2017-04-18] MEDS: CATAPRES TAB 0.1 MG PO SCH ×2 (10:06→20:55)
[2017-04-18] MEDS: TAB-A-VITE PO SCH (10:07)
--- NOTE | 2017-04-18 12:36 | CT ---
HISTORY: Confusion Study: CT brain without contrast Comparison: April 16, 2017 Technique: Multiple axial images of the brain were obtained from the skull base to the vertex without administr ation of IV contrast. Coronal and sagittal reformats were performed. Dose reduction procedures were used with MA/kv adjusted for body size. Findings: No acute intraparenchymal hemorrhage or mass can be identified. No extra-axial fluid collections ar e seen. No alteration in the attenuation of the brain parenchyma can be identified to suggest acute or subacute ischemic change. The ventricular system is symmetric and nondilated. there is decrease d attenuation in the periventricular white matter suggestive of small vessel vascular disease. The extracranial structures are grossly unremarkable. if acute CVA is a strong clinical consideration MR I with diffusion imaging is recommended for further evaluation. IMPRESSION: 1. No acute intracranial process can be identified. 2. Small-vessel disease Reported By:
[2017-04-18 13:12] LABS: CREATINE KINASE 318 Units/L (26-192); CREATINE KINASE MB 3.2 ng/mL (0-4.0)
[2017-04-18 13:35] LABS: TROPONIN I < 0.02 ng/mL (0-1.5)
--- NOTE | 2017-04-18 18:32 | PCM.PROG ---
Progress Note - Progress Note for Day of Date: 04/18/17 - Subjective Subjective: PT IS 76 BF ADMITTED WITH HTN URGENCY. PT HAD CT HEAD WITHOUT ACUTE CHANGES ON ADMISSION AND CTA CAROTIDS STABLE. PT BP WAS MUCH IMPROVED THIS AM, PT WAS SITTING DRESSED IN CHAIR READY TO GO HOME. PT WAS BEING D/C PER DISCHARGE NURSE WHEN SHE BECAME VERY WEAK, AND CONFUSION CHANGES IN SPEECH. PT D /C WAS CANCELED PT HAD STAT CT HEAD, CE, EKG AND BLOOD SUGAR CHECK. PT PLACED BACK ON THREAD INSPECTOR AND BP CONTROL WILL R/O ACUTE CVA/ TIA - Past Medical Family Social History Past Med/Fam/Surg Hx: No changes since H&P Allergies: Allergies No Known Drug Allergy Allergy (Verified 04/15/17 10:12) - Review of Systems ROS: No change since H&P - Vital Signs and I&O's Vital Signs: Temperature 98.5 F Pulse Rate [Left Radial] 80 Respiratory Rate 20 Blood Pressure [Left Arm] 162/71 Blood Pressure [Right Arm] 135/78 O2 Sat by Pulse Oximetry 96 Intake and Output: Intake & Output 04/16/17 04/17/17 04/18/17 04/19/17 11:59 11:59 11:59 11:59 Intake Total 860 960 580 420 Balance 860 960 580 420 - Physical Exam Oriented: Normal Eyes: Normal Ear: Normal Nose: Normal Throat: Normal Respiratory: Normal Cardiovascular: Normal, Edema (+ 1 BILATERAL LOWER EXTREMITY EDEMA) : Normal Auscultation: Bowel Sounds: Normal Tenderness: Normal Skin: Normal Musculoskeletal: Back:Lumbar Mood Description: Calm Speech Pattern: Clear, Appropriate - Laboratory and Diagnostics Result Diagrams: 04/18/17 03:40 04/18/17 03:40 Labs: Laboratory WBC 7.1 X10^3/uL (3.6-10.0) 04/18/17 03:40 RBC 5.94 X10^6/uL (3.5-5.4) H 04/18/17 03:40 Hgb 13.3 g/dL (12.0-16.0) 04/18/17 03:40 Hct 41.5 % (36.0-47.0) 04/18/17 03:40 MCV 69.8 fL (80.0-100.0) L 04/18/17 03:40 MCH 22.5 pg (27.0-34.0) L 04/18/17 03:40 MCHC 32.2 g/dL (33.0-35.0) L 04/18/17 03:40 RDW 16.9 % (11.6-16.5) H 04/18/17 03:40 Plt Count 184 X10^3/uL (150.0-450.0) 04/18/17 03:40 Plt Count Comment Adequate (ADEQUATE) 04/18/17 03:40 MPV 9.5 fL (7.4-11.0) 04/18/17 03:40 Neut % 67.5 % (42.0-75.0) 04/18/17 03:40 Lymph % 22.0 % (21.0-51.0) 04/18/17 03:40 Edgar % 8.5 % (0.0-13.0) 04/18/17 03:40 Eos % 1.7 % (0.9-2.9) 04/18/17 03:40 Baso % 0.3 % (0.2-1.0) 04/18/17 03:40 Neut # 4.8 x10^3/uL (2.2-4.8) 04/18/17 03:40 Lymph # 1.6 X10^3/uL (1.3-2.9) 04/18/17 03:40 Edgar # 0.6 x10^3/uL (0.3-0.8) 04/18/17 03:40 Eos # 0.1 x10^3/uL (0.0-0.2) 04/18/17 03:40 Baso # 0.0 X10^3/uL (0.0-0.1) 04/18/17 03:40 Absolute Nucleated RBC 0.0 /100WBC 04/18/17 03:40 Plt Morphology Comment Normal (NORMAL) 04/18/17 03:40 RBC Morphology Abnormal (NORMAL) A 04/18/17 03:40 Hypochromasia 1+ A 04/18/17 03:40 Microcytosis 1+ A 04/18/17 03:40 Sodium 141 mmol/L (136-145) 04/18/17 03:40 Corrected Sodium TNP 04/18/17 03:40 Potassium 3.9 mmol/L (3.5-5.1) 04/18/17 03:40 Chloride 106 mmol/L (98-107) 04/18/17 03:40 Carbon Dioxide 24.1 mmol/L (21-32) 04/18/17 03:40 BUN 21 mg/dL (7-18) H 04/18/17 03:40 Creatinine 1.05 mg/dL (0.55-1.02) H 04/18/17 03:40 Est GFR (MDRD) Af Amer > 60 (>60) 04/18/17 03:40 Est GFR (MDRD) Non-Af 54 (>60) L 04/18/17 03:40 Glucose 86 mg/dL (65-99) 04/18/17 03:40 Calcium 9.2 mg/dL (8.5-10.1) 04/18/17 03:40 Corrected Calcium 10.1 mg/dL (8.5-10.1) 04/18/17 03:40 Iron 62 ug/dL (50-175) 04/16/17 03:10 Transferrin 169 mg/dL (202-364) L 04/16/17 03:10 Ferritin 172 ng/mL (8-252) 04/16/17 03:10 Total Bilirubin 0.50 mg/dL (0.2-1.0) 04/18/17 03:40 AST 23 Units/L (15-37) 04/18/17 03:40 ALT 28 Units/L (12-78) 04/18/17 03:40 Alkaline Phosphatase 72 Units/L (46-116) 04/18/17 03:40 Creatine Kinase 318 Units/L (26-192) H 04/18/17 11:30 CK-MB (CK-2) 3.2 ng/mL (0-4.0) 04/18/17 11:30 CK/CKMB % Calc 1.0 % (<4) 04/18/17 11:30 Troponin I < 0.02 ng/mL (0-1.5) 04/18/17 11:30 Total Protein 6.9 g/dL (6.4-8.2) 04/18/17 03:40 Albumin 2.9 g/dL (3.4-5.0) L 04/18/17 03:40 Globulin 4.0 g/dL (2.5-4.5) 04/18/17 03:40 Albumin/Globulin Ratio 0.7 Ratio (1.1-2.1) L 04/18/17 03:40 Triglycerides 94 mg/dL (0-150) 04/16/17 03:10 Cholesterol 157 mg/dL (0-200) 04/16/17 03:10 LDL Cholesterol, Calc 97 mg/dL (0-100) 04/16/17 03:10 HDL Cholesterol 41 mg/dL (40-60) 04/16/17 03:10 Cholesterol/HDL Ratio 3.8 (0.0-5.0) 04/16/17 03:10 Vitamin B12 536 pg/mL (193-986) 04/16/17 03:10 Folate 19.4 ng/mL (>8.6) 04/16/17 03:10 Specimen Type Clean catch urine 04/15/17 13:16 Urine Color Yellow (YELLOW) 04/15/17 13:16 Urine Appearance Clear (CLEAR) 04/15/17 13:16 Urine pH 6.0 (5.0 - 8.0) 04/15/17 13:16 Ur Specific Hancock 1.015 (1.000-1.030) 04/15/17 13:16 Urine Protein Negative (NEGATIVE) 04/15/17 13:16 Urine Glucose (UA) Negative (NEGATIVE) 04/15/17 13:16 Urine Ketones Negative (NEGATIVE) 04/15/17 13:16 Urine Occult Blood 1+ (NEGATIVE) 04/15/17 13:16 Urine Nitrite Negative (NEGATIVE) 04/15/17 13:16 Urine Bilirubin Negative (NEGATIVE) 04/15/17 13:16 Urine Urobilinogen Normal (NORMAL) 04/15/17 13:16 Ur Leukocyte Esterase Negative (NEGATIVE) 04/15/17 13:16 Urine RBC Rare /HPF (NEGATIVE) 04/15/17 13:16 Urine WBC Rare /HPF (NEGATIVE) 04/15/17 13:16 Ur Squamous Epith Cells Negative /HPF (NEGATIVE) 04/15/17 13:16 Urine Bacteria Negative /HPF (NEGATIVE) 04/15/17 13:16 Ur Culture Indicated? No/not indicated 04/15/17 13:16 - Plan (1) Generalized weakness Status: Acute Plan: ACUTE ONSET, R/O TIA. STAT CT HEAD, CARDIAC ENZYMES AND EKG (2) Hypertensive urgency Status: Acute Plan: TELEMERTY, SUPPLEMENTAL O2,. BP AND LIPID CONTROL. IV HYDRALAZINE, PO CATAPRES (3) Abnormal EKG Status: Acute Plan: REPEAT EKG (4) Dizziness Status: Acute Plan: CT HEAD, CTA CAROTIDS (5) Essential hypertension Status: Acute
[2017-04-18] MEDS ORDERED: COLACE CAP 100 MG PO SCH (21:00)
[2017-04-19 08:05] VITALS: BP 124/89
[2017-04-19] MEDS: TAB-A-VITE PO SCH (10:37)
[2017-04-19] MEDS: ZESTRIL TAB 40 MG PO SCH (10:38)
[2017-04-19] MEDS: NORVASC TAB 10 MG PO SCH (10:38)
[2017-04-19] MEDS: VITAMIN B-12 PO SCH (10:38)
== END 2017-04-19 11:45 | disposition home or self-care (01) ==
LOC: ER 10:13 → MED/SURG 13:21
PROVIDERS: ADMIT Internal Medicine; ATTEND Internal Medicine
DX: I16.0 Hypertensive urgency (principal); R94.31 Abnormal electrocardiogram [ECG] [EKG]; I10 Essential (primary) hypertension; R53.1 Weakness; R39.15 Urgency of urination; R42 Dizziness and giddiness; R51 Headache; E78.2 Mixed hyperlipidemia; E04.2 Nontoxic multinodular goiter; R47.89 Other speech disturbances; R41.0 Disorientation, unspecified
CPT/HCPCS: 36415; 70450; 70498; 71010; 80053; 80061; 81001; 82550; 82553; 82607; 82728; 82746; 83540; 84466; 84484; 85025; 93005; 93010; 94760; 94762; 96365; 99284; A4216; A4222; G0378

== ENCOUNTER 2017-06-13 17:26 | Emergency (ER) | payer OTHER ==
[2017-06-13 17:29] VITALS: BMI 31.5
--- NOTE | 2017-06-13 17:53 | DR.GENAD ---
HPI - PCP Primary Care Physician: GEOVANNY - HPI Comment HPI Comment: HAVING HEADACHE. SOME NAUSEA TODAY. NO LOCALIZE WEAKNESS. - Complaint/Symptoms Chief Complaint Doctors Comments: ELEVATED BLOOD PRESURE. PCP TOLD HER TO TAKE NORVASE 5MG BID INSTEAD OF 10MG DAILY. BP IS OFF SINCE SHE STARTED DOING THAT. Chief Complaint:: PT C/O HIGH BLOOD PRESSURE PT STATES HER PCP HAS CHANGED HER MEDICATIONS - Nurses notes reviewed Nurses Notes Review: Yes - Source History Provided: Patient - Mode of Arrival Mode of Arrival: Ambulatory - Timing Onset of Chief Complaint: 06/13/17 Came on: Suddenly - Duration Duration: Intermittent Duration: Days PMH - PMH Past Medical History: Yes Past Medical History: Asthma, Hypertension Past Surgical History: Yes Surgical History: Abdominal Surgery - Family History History of Family Medical Conditions: Yes Family Medical History: Heart Failure, Hypertension - Social History Does any household member use tobacco: No Alcohol Use: None Do you use any recreational Drugs:: No Lives With: Family Lives Where: Home - infectious screening In the last 2 months have you had wt loss of >10#?: NO Have you had fever, night sweats or hemotysis?: No Have you traveled outside the country in the last 6 months?: No Isolation: Standard ROS - Review of Systems Constitutional: No Symptoms Reported, Weakness, Fatigue. negative: Chills, Malaise Eyes: No Symptoms Reported ENTM: No Symptoms Reported, Ear Pain, Ear Discharge. negative: Hearing Loss, Nose Discharge, Epistaxis, Mouth Pain, Throat Pain Respiratoy: Non-Productive Cough. negative: Productive Cough, Short of Breath, Stridor, Wheezing, Hemoptysis Cardiovascular: No Symptoms Reported. negative: Chest Pain Gastrointestinal/Abdominal: Abdominal Pain. negative: Constipation, Diarrhea, Nausea Neurological: Headache, Weakness, Dizziness. negative: Seizure, Tingling, Problems Walking, Speech Problem Musculoskeletal: No Symptoms Reported Integumentary: No Symptoms Reported Hematologic/Lymphatic: No Symptoms Reported Endocrine: No Symptoms Reported All Other Systems: Reviewed and Negative PE - Vital Signs Vitals: Temperature 98.0 F Pulse Rate 93 Respiratory Rate 20 Blood Pressure [Left Arm] 142/85 Blood Pressure [Right Arm] 135/78 Blood Pressure 175/96 O2 Sat by Pulse Oximetry 100 - General Limitations: No Limitations General Appearance: Alert - Head Head Exam: Normal Inspection - Eyes Eye exam: Normal Appearance - ENT ENT Exam: Normal External Ear Exam External Ear Exam: Normal External Inspection TM/Canal Exam: Bilateral Normal Nose Exam: Normal Nose Exam Mouth Exam: Normal Inspection Throat Exam: Normal Inspection - Neck Neck Exam: Normal Inspection - Chest Chest Inspection: Symmetric Chest Wall Rise - Respiratory Respiratory Exam: Normal Lung Sounds Bilat Respiratory Exam: Bilateral Clear to Auscultation - Abdominal Exam Abdominal Exam: Normal Inspection - Extremities Extremities Exam: Normal Inspection - Back Back Exam: Normal Inspection - Neurologic Neurological Exam: Alert, Oriented X3, CN II-XII Intact, Normal Gait, Reflexes Normal. negative: Motor Sensory Deficit - Psychiatric Psychiatric Exam: Normal Affect, Normal Mood - Skin Skin Exam: Normal Color MDM - Additional Information Additional Information Obtained From: Family - Differential Diagnosis Differential Diagnosis: HTN Course - Treatment Treatment: SEE ORDERS. CLONIDINE PO IN ED. BP IMPROVE. - Education/Counseling Education/Counseling: Patient, Family, Education Educated On: Treatment, Diagnosis, Needs for Follow Up - Diagnosis Discharge Problem: Hypertension Qualifiers: Hypertension type: essential hypertension Qualified Code(s): I10 - Essential ( primary) hypertension - Discharge Plan Disposition: HOME, SELF-CARE Condition: Stable - Follow ups/Referrals Follow ups/Referrals: ANDREA SMALL [Primary Care Provider] - 06/14/17 - Instructions Instructions: Hypertension Additional Instructions: RETURN TO ED IF WORSE.
[2017-06-13] MEDS ORDERED: CATAPRES TAB 0.1 MG PO ONE (19:26)
[2017-06-13] MEDS ORDERED: CATAPRES TAB 0.1 MG ONE (19:36)
[2017-06-13 20:41] VITALS: BP 142/85
== END 2017-06-13 20:45 | disposition home or self-care (01) ==
LOC: ER 17:35
DX: I10 Essential (primary) hypertension (principal)
CPT/HCPCS: 99282

== ENCOUNTER 2022-12-27 15:31 | Observation (INO) ==
--- NOTE | 2022-12-27 18:11 | DR.H&P ---
H&P - History & Physical for Day of: H&P Date: 12/27/22 - Chief Complaint Chief Complaint: right side and lower back pain, urinary tract infection and lower leg edema - History of Present Illness History of Present Illness: PT IS 82 BF, DIRECT ADMIT FROM DR DAVIES OFFICE WITH UTI AND HEMATURIA. PT HAS HAD CO RIGHT LOWER BACK PAIN STARTING LAST WEEK. PT HAS BEEN TAKING OTC "SHANTE BACK PILLS" FOR PAIN. PT REPORTS INCREASED BILATERAL LE SWELLING AND URINARY INCONTINENCE. PT HAS PMH OF HTN AND OA. PT ADMITTED FOR TREATMENT AND EVALUATION OF ACUTE ILLNESS. - Past Medical History Past Medical History: Arthritis, Diabetes (BORDERLINE), GERD, Hypertension - Past Surgical History Surgical History: Bowel Resection - Family History Family Medical History: Diabetes Mellitus, MA, Coronary Artery Disease, Hypertension - Social History Does patient currently use any type of tobacco product: No Have you used tobacco products in the last 12 months: No Type of Tobacco Use: None Does any household member use tobacco: No Alcohol Use: None Drug Use: None Risks, benefits, and alternatives of opioids discussed: No - Medications Home Medications: No Known Drug Allergies Allergy (Verified 09/04/18 03:31) - Review of Systems Constitutional: Chills, Weakness, Malaise Eyes: No Symptoms Reported ENT: No Symptoms Reported Respiratory: SOB with Excertion Cardiovascular: Edema Gastrointestinal: No Symptoms Reported Genitourinary: Frequency, Incontinence, Hematuria Musculoskeletal: Back Pain Skin: No Symptoms Reported Neurological: Weakness (LOWER LEG WEAKNESS) - Physical Exam Vital Signs: Blood Pressure [Left Arm] 150/80 Blood Pressure [Right Arm] 162/85 Blood Pressure 148/89 Oriented: Normal Eyes: Normal Ear: Normal Nose: Normal Throat: Normal Respiratory: RLL Diminished, LLL Diminished Cardiovascular: Normal, Edema (+4 BILATERAL LOWER EXTREMITY EDEMA) : Hematuria, Frequency Auscultation: Bowel Sounds: Normal Palpation: Normal Tenderness: RLQ, Mild Skin: Normal Musculoskeletal: Back:Lumbar Psychiatric: Normal Mood Description: Calm Speech Pattern: Clear, Appropriate - Assessment/Plan (1) Pyelonephritis Status: Acute Plan: ADMIT, IV HYDRATION WITH BECKETT CATH FOR UA AND UC, THEN STRICT I&OS. IV LASIX WITH POTASSIUM REPLACEMENT. CXR AND BNP ON ADMISSION. IV ATBX THERAPYL, BLOOD AND URINE CULTURES ON ADMISSION. BP CONTROL, CT ABD PELVIS. VERIFY HOME MEDICATIONS (2) Urinary bladder incontinence Status: Acute (3) Edema Status: Acute (4) Essential hypertension Status: Acute (5) Generalized weakness Status: Acute - Allergies Allergies/Adverse Reactions: Allergies Allergy/AdvReac Type Severity Reaction Status Date / Time No Known Drug Allergies Allergy Verified 09/04/18 03:31
[2022-12-27 18:55] LABS: BASOPHILS % (AUTO) 0.4 % (0.2-1.0); EOSINOPHILS # (AUTO) 0.2 x10^3/uL (0.0-0.2); EOSINOPHILS % (AUTO) 2.4 % (0.9-2.9); HEMATOCRIT 39.4 % (36.0-47.0); HEMOGLOBIN 12.5 g/dL (12.0-16.0); LYMPHOCYTES # (AUTO) 1.2 X10^3/uL (1.3-2.9); LYMPHOCYTES % (AUTO) 17.6 % (21.0-51.0); MEAN CORPUSCULAR HEMOGLOBIN 22.7 pg (27.0-34.0); MEAN CORPUSCULAR HGB CONC 31.8 g/dL (33.0-35.0); MEAN CORPUSCULAR VOLUME 71.4 fL (80.0-100.0); MEAN PLATELET VOLUME 8.9 fL (7.4-11.0); MONOCYTES # (AUTO) 0.6 x10^3/uL (0.3-0.8); NEUTROPHILS # (AUTO) 4.8 x10^3/uL (2.2-4.8); NEUTROPHILS % (AUTO) 70.6 % (42.0-75.0); RED BLOOD COUNT 5.52 X10^6/uL (3.5-5.4); WHITE BLOOD COUNT 6.8 X10^3/uL (3.6-10.0)
[2022-12-27 19:10] LABS: ALBUMIN 3.2 g/dL (3.4-5.0); CALCIUM 9.1 mg/dL (8.5-10.1); CARBON DIOXIDE 25.9 mmol/L (21-32); COR CA(FOR HYPOALB) 9.7 mg/dL (8.5-10.1); CREATININE 1.12 mg/dL (0.55-1.02); MICROCYTOSIS SLIGHT; PLATELET MORPHOLOGY COMMENT NORMAL (NORMAL); TOTAL PROTEIN 7.1 g/dL (6.4-8.2)
[2022-12-27 20:13] VITALS: BMI 35.3
[2022-12-27] MEDS: LASIX IVP SCH (20:16)
[2022-12-27] MEDS: NORVASC TAB 10 MG PO SCH (20:17)
[2022-12-27] MEDS: K-DUR TAB 20 MEQ PO SCH (20:17)
[2022-12-27 20:24] LABS: BILIRUBIN,URINE NEGATIVE (NEGATIVE); BLOOD/HEMOGLOBIN,URINE 2+ (NEGATIVE); GLUCOSE, URINE NEGATIVE (NEGATIVE); KETONES,URINE NEGATIVE (NEGATIVE); LEUKOCYTE ESTERASE ,URINE 2+ (NEGATIVE); NITRITES,URINE NEGATIVE (NEGATIVE); PROTEIN,URINE 2+ (NEGATIVE); UROBILINOGEN,URINE NORMAL (NORMAL)
[2022-12-27] MEDS ORDERED: NS 500 ML IV 500 ML IV PRN (20:27)
[2022-12-27] MEDS ORDERED: NS 500 ML IV 500 ML IV ONE (20:30)
[2022-12-27 20:33] LABS: APPEARANCE,URINE CLEAR (CLEAR); BACTERIA,URINE 1+ /HPF (NEGATIVE); COLOR,URINE YELLOW (YELLOW); RBC,URINE 0-2 /HPF (0-3); SQUAMOUS EPITHELIAL CELL,UR FEW /HPF (NEGATIVE); TRANSITIONAL EPI CELLS,URINE RARE /HPF (NEGATIVE)
[2022-12-27] MEDS: MERREM VIAL 1 G in NS 100 ML IV 100 ML IV SCH (20:35)
[2022-12-28] MEDS: K-DUR TAB 20 MEQ PO SCH ×3 (00:19→20:25)
[2022-12-28] MEDS: NS 1,000 ML IV 1,000 ML IV SCH (00:24)
[2022-12-28 05:16] LABS: BASOPHILS % (AUTO) 0.3 % (0.2-1.0); EOSINOPHILS # (AUTO) 0.2 x10^3/uL (0.0-0.2); EOSINOPHILS % (AUTO) 3.1 % (0.9-2.9); HEMATOCRIT 38.1 % (36.0-47.0); HEMOGLOBIN 12.1 g/dL (12.0-16.0); LYMPHOCYTES # (AUTO) 1.4 X10^3/uL (1.3-2.9); LYMPHOCYTES % (AUTO) 20.8 % (21.0-51.0); MEAN CORPUSCULAR HEMOGLOBIN 22.4 pg (27.0-34.0); MEAN CORPUSCULAR HGB CONC 31.7 g/dL (33.0-35.0); MEAN CORPUSCULAR VOLUME 70.7 fL (80.0-100.0); MONOCYTES # (AUTO) 0.8 x10^3/uL (0.3-0.8); MONOCYTES % (AUTO) 12.3 % (0.0-13.0); NEUTROPHILS # (AUTO) 4.2 x10^3/uL (2.2-4.8); NEUTROPHILS % (AUTO) 63.5 % (42.0-75.0); RED BLOOD COUNT 5.39 X10^6/uL (3.5-5.4); RED CELL DISTRIBUTION WIDTH 16.1 % (11.6-16.5); WHITE BLOOD COUNT 6.7 X10^3/uL (3.6-10.0)
[2022-12-28 05:27] LABS: ALANINE AMINOTRANSFERASE 20 Units/L (12-78); ALKALINE PHOSPHATASE 82 Units/L (46-116); ASPARTATE AMINO TRANSFERASE 17 Units/L (15-37); BLOOD UREA NITROGEN 17 mg/dL (7-18); CARBON DIOXIDE 30.5 mmol/L (21-32); CHLORIDE 105 mmol/L (98-107); COR CA(FOR HYPOALB) 9.8 mg/dL (8.5-10.1); CREATININE 1.01 mg/dL (0.55-1.02); SODIUM 143 mmol/L (136-145); TOTAL PROTEIN 6.6 g/dL (6.4-8.2); eGFR NON BLACK RACES 56 (>60)
[2022-12-28 05:43] LABS: HYPOCHROMASIA SLIGHT; MICROCYTOSIS SLIGHT; PLATELET MORPHOLOGY COMMENT NORMAL (NORMAL); STOMATOCYTES SLIGHT; TARGET CELLS 1+
--- NOTE | 2022-12-28 08:00 | RAD ---
HISTORYShortness of breathSTUDYCHEST, 1 VIEWCOMPARISONNoneFINDINGSHeart is upper limits normal in size. No congestive heart failure is noted. Johanna are normal. Aorta is calcified. Lung newby are clear. No pleural effusions are identified. Bony thorax is unremarkable.IMPRESSIONNo significant abnormality identifiedElectronically signed by: LIANE BAY (Dec 28, 2022 07:58:49)
[2022-12-28] MEDS: MERREM VIAL 1 G in NS 100 ML IV 100 ML IV SCH ×2 (09:19→20:25)
[2022-12-28] MEDS: COZAAR PO SCH (09:20)
[2022-12-28] MEDS: ASPIRIN EC 81 MG PO SCH (09:20)
[2022-12-28] MEDS: LASIX IVP SCH ×2 (09:20→17:32)
[2022-12-28] MEDS: NORVASC TAB 10 MG PO SCH ×2 (09:20→20:25)
[2022-12-28] MEDS: LOVENOX INJ 30 MG SYR SC SCH (09:21)
--- NOTE | 2022-12-28 09:56 | CT ---
HISTORYrt flank pain, hematuria.STUDYABDOMEN/PELVIS W/O CONCOMPARISONNoneTECHNIQUEMultiple CT axial images of the abdomen and pelvis were obtained without IV contrast. Coronal and sagittal images were reconstructed. Dose reduction techniques included Automated Exposure Control (AEC) and adjustment of mA and kV.FINDINGSFew small calcifications are seen in the upper right kidney, the largest measuring about 2 mm. Small calcification in the lower left kidney measures 5 mm. There are no abnormal calcifications in the ureters or the urinary bladder.The kidneys have normal size and shape. There is no hydronephrosis or significant perirenal edema. The ureters are not dilated. The bladder is normally distended. It has no wall thickening or perivesical edema.Linear scarring in the right lower lung is very small. No pneumonia or pleural effusion. Heart size normal.The liver is normal in size and configuration. The gallbladder has no inflammation around it. The spleen is normal in size and shape.The adrenal glands are normal. The pancreas is normal.Hiatal hernia measures about 3.5 cm.The bowel is not dilated. There is no wall thickening in the bowel or edema around the bowel. The appendix is normal in size with no inflammation around it. No evidence of appendicitis. There are a few isolated diverticula in the left colon. But there is no wall thickening or pericolonic edema to suggest acute diverticulitis.Surgical clips are seen in upper pelvis. Anteverted uterus. No free fluid or inflammation in the pelvis.Degenerative changes are present in the spine. Moderate levoconvex scoliosis. Small umbilical and supraumbilical hernias contain fat.IMPRESSION1. No acute finding2. Nonobstructing renal calculi3. Colonic diverticulaElectronically signed by: Indra Leyva (Dec 28, 2022 09:55:05)
[2022-12-28] MEDS: TYLENOL 325 MG TAB PO PRN (21:07)
[2022-12-29] MEDS: NS 1,000 ML IV 1,000 ML IV SCH (04:10)
[2022-12-29 06:27] LABS: BASOPHILS % (AUTO) 0.1 % (0.2-1.0); EOSINOPHILS # (AUTO) 0.2 x10^3/uL (0.0-0.2); EOSINOPHILS % (AUTO) 2.5 % (0.9-2.9); LYMPHOCYTES # (AUTO) 1.5 X10^3/uL (1.3-2.9); LYMPHOCYTES % (AUTO) 23.6 % (21.0-51.0); MEAN CORPUSCULAR HEMOGLOBIN 22.5 pg (27.0-34.0); MEAN CORPUSCULAR HGB CONC 31.7 g/dL (33.0-35.0); MEAN CORPUSCULAR VOLUME 71.1 fL (80.0-100.0); MEAN PLATELET VOLUME 9.2 fL (7.4-11.0); MONOCYTES # (AUTO) 0.8 x10^3/uL (0.3-0.8); NEUTROPHILS % (AUTO) 61.8 % (42.0-75.0); RED BLOOD COUNT 5.34 X10^6/uL (3.5-5.4); RED CELL DISTRIBUTION WIDTH 16.1 % (11.6-16.5); WHITE BLOOD COUNT 6.5 X10^3/uL (3.6-10.0)
[2022-12-29 06:35] LABS: ALANINE AMINOTRANSFERASE 21 Units/L (12-78); ALBUMIN 2.8 g/dL (3.4-5.0); ALKALINE PHOSPHATASE 80 Units/L (46-116); ASPARTATE AMINO TRANSFERASE 20 Units/L (15-37); BLOOD UREA NITROGEN 14 mg/dL (7-18); CALCIUM 8.7 mg/dL (8.5-10.1); CARBON DIOXIDE 28.4 mmol/L (21-32); CHLORIDE 104 mmol/L (98-107); COR CA(FOR HYPOALB) 9.7 mg/dL (8.5-10.1); SODIUM 140 mmol/L (136-145); TOTAL PROTEIN 6.5 g/dL (6.4-8.2); eGFR NON BLACK RACES 56 (>60)
[2022-12-29 07:25] LABS: PLATELET MORPHOLOGY COMMENT NORMAL (NORMAL)
[2022-12-29 07:26] LABS: MICROCYTOSIS SLIGHT; TARGET CELLS SLIGHT
[2022-12-29] MEDS: LOVENOX INJ 30 MG SYR SC SCH (08:31)
[2022-12-29] MEDS: K-DUR TAB 20 MEQ PO SCH (08:34)
[2022-12-29] MEDS: TYLENOL 325 MG TAB PO PRN (08:35)
[2022-12-29] MEDS: MERREM VIAL 1 G in NS 100 ML IV 100 ML IV SCH (08:35)
[2022-12-29] MEDS: ASPIRIN EC 81 MG PO SCH (08:37)
[2022-12-29] MEDS: NORVASC TAB 10 MG PO SCH (08:37)
[2022-12-29] MEDS: COZAAR PO SCH (08:37)
[2022-12-29] MEDS ORDERED: TORADOL 15 MG VIAL IVP ONE (08:55)
[2022-12-29] MEDS: LASIX IVP SCH (10:14)
[2022-12-29 13:56] VITALS: BP 119/75
== END 2022-12-29 13:40 | disposition home health service (06) ==
LOC: ICU
PROVIDERS: ADMIT Internal Medicine; ATTEND Internal Medicine
DX: M19.90 Unspecified osteoarthritis, unspecified site; B96.4 Proteus (mirabilis) (morganii) as the cause of diseases classified elsewhere; B96.29 Other Escherichia coli [E. coli] as the cause of diseases classified elsewhere; M54.59 Other low back pain; N39.498 Other specified urinary incontinence; R60.0 Localized edema; R53.1 Weakness; I50.9 Heart failure, unspecified; K57.30 Diverticulosis of large intestine without perforation or abscess without bleeding; N30.00 Acute cystitis without hematuria; I11.0 Hypertensive heart disease with heart failure; N10 Acute pyelonephritis; R06.02 Shortness of breath

== ENCOUNTER 2024-09-24 16:23 | Observation (INO) ==
[~2024-09-24 16:23] MED LIST: LASIX PO SCH
--- NOTE | 2024-09-24 17:19 | DR.H&P ---
H&P History & Physical for Day of: H&P Date: 09/24/24 Chief Complaint Chief Complaint: severe leg pain, leg swelling, weakness and shortness of breath History of Present Illness History of Present Illness: PT IS 84 BF, DIRECT ADMIT FROM DR DAVIES OFFICE AFTER PRESENTING FOR FOLLOW UP ON UTI AND LOWER LEG EDEMA. PT HAS TAKEN ROUND OF MACROBID BID FOR 14 DAYS THEN ONCE DAILY WITH CONTINUED DYSURIA. PT HAS +4 LE PITTING EDEMA. PT HAS BEEN ON LASIX WITH HOME HEALTH WRAPPING LEGS FOR SWELLING WITHOUT IMPROVEMENT. PT STATES SHE DID NOT SLEEP LAST NIGHT DUE TO SERERE PAIN IN HER LEGS. PT CO WEAKNESS, CANNOT STAND AND INCREASED SOB. PT WAS VOMITING IN THE OFFICE AND SHE WAS GIVEN ZOFRAN 4MG IM. PT ADMITTED FOR TREATMENT AND EVALUATION OF ACUTE ILLNESS. Past Medical History Past Medical History: Arthritis, CHF, GERD, Hypertension and Renal Disease Past Surgical History Surgical History: Bowel Resection and Ortho Surgery Family History Family Medical History: Diabetes Mellitus and Cancer Medications Home Medications: Home Medications Medication Instructions Recorded Confirmed Type losartan 100 mg tablet 100 mg PO DAILY 09/04/18 08/15/24 History amlodipine 10 mg tablet 10 mg PO QPM 08/15/24 08/15/24 History hydralazine 10 mg tablet 10 mg PO BID 08/15/24 08/15/24 History Allergies Allergies Allergy/AdvReac Type Severity Reaction Status Date / Time No Known Drug Allergies Allergy Verified 12/27/22 20:27 Review of Systems Constitutional: Weakness Eyes: No Symptoms Reported ENT: No Symptoms Reported Respiratory: SOB with Excertion Cardiovascular: Edema Gastrointestinal: Nausea and Vomiting Genitourinary: Dysuria, Frequency and Incontinence Musculoskeletal: Leg Pain Skin: Rash (REDNESS TO PERINEUM) Neurological: Weakness Oriented: Normal Eyes: Normal Nose: Normal Throat: Dry Respiratory: Diminished Throughout Cardiovascular: Bradycardia and Edema Auscultation: Bowel Sounds: Normal Palpation: Normal Tenderness: Normal Skin: Decreased Turgur Musculoskeletal: Right, Left, Leg, Back:Lumbar, Swelling and Motor Deficit Psychiatric: Normal Mood Description: Depressed Affect: Depressed Speech Pattern: Clear and Inappropriate Assessment/Plan (1) CHF (congestive heart failure): Status: Acute Plan: ADMIT, CE AND EKG ON ADMISSION CXR, STRICT I&OS, BP CONTROL IV LASIX, BC AND UC, IV ROCEPHIN (2) Lower extremity cellulitis: Status: Acute (3) Essential hypertension: Status: Acute (4) Urinary tract infection: Status: Acute (5) Generalized weakness: Status: Acute
--- NOTE | 2024-09-24 17:25 | EKG ---
Test Reason : CHF, SOB Blood Pressure : */* mmHG Vent. Rate : 80 BPM Atrial Rate : 80 BPM P-R Int : 186 ms QRS Dur : 94 ms QT Int : 386 ms P-R-T Axes : 57 -34 9 degrees QTc Int : 445 ms Sinus rhythm with occasional premature ventricular complexes Left axis deviation Anterolateral infarct , age undetermined Abnormal ECG No previous ECGs available Confirmed by Hany Rincon MD ([id number]) on 09/25/2024 7:21:04 AM Referred By: Confirmed By: Hany Rincon MD
[2024-09-24 18:15] LABS: HEMOGLOBIN 13.2 g/dL (12.0-16.0); WHITE BLOOD COUNT 9.2 X10^3/uL (3.6-10.0)
[2024-09-24] MEDS: ROCEPHIN VIAL 1 GRAM 1 G in NS 100 ML IV 100 ML IV SCH (18:15)
[2024-09-24] MEDS: LASIX IVP ONE ×2 (18:16→18:18)
[2024-09-24] MEDS: TYLENOL 500 MG TAB EXTRA STRENGTH PO ONE (18:17)
[2024-09-24] MEDS: K-DUR TAB 20 MEQ PO SCH (18:18)
[2024-09-24] MEDS: ULTRAM PO ONE (18:18)
[2024-09-24 18:22] LABS: BASOPHILS % (AUTO) 0.3 % (0.2-1.0); EOSINOPHILS % (AUTO) 0.3 % (0.9-2.9); HEMATOCRIT 40.9 % (36.0-47.0); LYMPHOCYTES # (AUTO) 0.8 X10^3/uL (1.3-2.9); LYMPHOCYTES % (AUTO) 8.8 % (21.0-51.0); MEAN CORPUSCULAR HGB CONC 32.3 g/dL (33.0-35.0); MEAN CORPUSCULAR VOLUME 71.3 fL (80.0-100.0); MEAN PLATELET VOLUME 8.6 fL (7.4-11.0); MONOCYTES # (AUTO) 0.6 x10^3/uL (0.3-0.8); MONOCYTES % (AUTO) 6.9 % (0.0-13.0); NEUTROPHILS # (AUTO) 7.7 x10^3/uL (2.2-4.8); NEUTROPHILS % (AUTO) 83.7 % (42.0-75.0); PLATELET COUNT 186 X10^3/uL (150.0-450.0); RED BLOOD COUNT 5.75 X10^6/uL (3.5-5.4); RED CELL DISTRIBUTION WIDTH 16.6 % (11.6-16.5)
[2024-09-24] MEDS: NS 500 ML IV 500 ML IV ONE (18:23)
[2024-09-24 18:25] LABS: ALANINE AMINOTRANSFERASE 21 Units/L (12-78); ALBUMIN 3.6 g/dL (3.4-5.0); ALKALINE PHOSPHATASE 122 Units/L (46-116); ASPARTATE AMINO TRANSFERASE 17 Units/L (15-37); BLOOD UREA NITROGEN 13 mg/dL (7-18); CALCIUM 9.7 mg/dL (8.5-10.1); CARBON DIOXIDE 28.1 mmol/L (21-32); CHLORIDE 103 mmol/L (98-107); COR NA(FOR HYPERGLY) 140 mmol/L (136-145); CREATINE KINASE 133 Units/L (26-192); CREATININE 0.94 mg/dL (0.55-1.02); GLUCOSE 124 mg/dL (65-99); MAGNESIUM 1.8 mg/dL (2.0-2.9); POTASSIUM 4.1 mmol/L (3.5-5.1); SODIUM 139 mmol/L (136-145); TOTAL PROTEIN 7.8 g/dL (6.4-8.2); eGFR NON BLACK RACES > 60 (>60)
[2024-09-24 18:31] LABS: MICROCYTOSIS SLIGHT; PLATELET MORPHOLOGY COMMENT NORMAL (NORMAL)
[2024-09-24] MEDS ORDERED: CONSULT PHARMACY - POTASSIUM & MAGNESIUM XX SCH (20:00)
[2024-09-24] MEDS: NORVASC TAB 10 MG PO SCH (20:14)
[2024-09-24] MEDS: LOVENOX INJ 40 MG SYR SC SCH (20:14)
[2024-09-24 21:08] VITALS: BMI 32.8
[2024-09-24] MEDS: MAG-OX TAB PO SCH (21:14)
[2024-09-25] MEDS: ULTRAM PO PRN (04:05)
[2024-09-25 05:35] LABS: BASOPHILS % (AUTO) 0.7 % (0.2-1.0); EOSINOPHILS # (AUTO) 0.1 x10^3/uL (0.0-0.2); EOSINOPHILS % (AUTO) 1.2 % (0.9-2.9); HEMATOCRIT 39.8 % (36.0-47.0); HEMOGLOBIN 12.8 g/dL (12.0-16.0); LYMPHOCYTES # (AUTO) 1.6 X10^3/uL (1.3-2.9); LYMPHOCYTES % (AUTO) 22.5 % (21.0-51.0); MEAN CORPUSCULAR HEMOGLOBIN 23.1 pg (27.0-34.0); MEAN CORPUSCULAR HGB CONC 32.1 g/dL (33.0-35.0); MEAN CORPUSCULAR VOLUME 71.9 fL (80.0-100.0); MEAN PLATELET VOLUME 9.4 fL (7.4-11.0); MONOCYTES # (AUTO) 0.6 x10^3/uL (0.3-0.8); MONOCYTES % (AUTO) 8.8 % (0.0-13.0); NEUTROPHILS # (AUTO) 4.7 x10^3/uL (2.2-4.8); NEUTROPHILS % (AUTO) 66.8 % (42.0-75.0); PLATELET COUNT 190 X10^3/uL (150.0-450.0); RED BLOOD COUNT 5.54 X10^6/uL (3.5-5.4); RED CELL DISTRIBUTION WIDTH 16.5 % (11.6-16.5)
[2024-09-25 06:05] LABS: ALANINE AMINOTRANSFERASE 17 Units/L (12-78); ALBUMIN 3.3 g/dL (3.4-5.0); ALKALINE PHOSPHATASE 112 Units/L (46-116); ASPARTATE AMINO TRANSFERASE 15 Units/L (15-37); BLOOD UREA NITROGEN 10 mg/dL (7-18); CALCIUM 9.3 mg/dL (8.5-10.1); CARBON DIOXIDE 29.2 mmol/L (21-32); CHLORIDE 104 mmol/L (98-107); COR CA(FOR HYPOALB) 9.9 mg/dL (8.5-10.1); CREATININE 0.83 mg/dL (0.55-1.02); GLUCOSE 91 mg/dL (65-99); MAGNESIUM 1.8 mg/dL (2.0-2.9); POTASSIUM 3.9 mmol/L (3.5-5.1); SODIUM 141 mmol/L (136-145); TOTAL PROTEIN 7.2 g/dL (6.4-8.2); eGFR NON BLACK RACES > 60 (>60)
[2024-09-25 06:44] LABS: MICROCYTOSIS SLIGHT; PLATELET MORPHOLOGY COMMENT NORMAL (NORMAL); TARGET CELLS 1+
[2024-09-25] MEDS ORDERED: CONSULT PHARMACY - POTASSIUM & MAGNESIUM XX SCH (07:00)
[2024-09-25] MEDS ORDERED: LASIX IVP SCH (09:00)
[2024-09-25] MEDS ORDERED: PATIENT'S HOME MEDICATION (Losartan 100 mg tablet) PO SCH (09:00)
[2024-09-25] MEDS: NEURONTIN CAP 100 MG PO SCH (09:25)
[2024-09-25] MEDS: LASIX IVP SCH (09:25)
[2024-09-25] MEDS: MAG-OX TAB PO SCH (09:25)
[2024-09-25] MEDS: COZAAR PO SCH (09:26)
[2024-09-25] MEDS: APRESOLINE TAB 10 MG PO SCH (09:26)
--- NOTE | 2024-09-25 09:38 | RAD ---
EXAM:Portable AP chestHISTORY:CHF SOBCOMPARISON:12/27/2022FINDINGS:Heart size continues normal. No definite infiltrate/pneumonia, CHF or pleural effusion. Patient rotation limits evaluation of the hilar structures.IMPRESSION:No definite interval change or acute chest findings.THIS IS AN ELECTRONICALLY VERIFIED FINAL [id number]/2024 9:35 AM - Electronically signed by Jarett Onofre MD
[2024-09-25] MEDS ORDERED: TORADOL 15 MG VIAL ONE (10:52)
[2024-09-25] MEDS: TORADOL 15 MG VIAL IVP ONE (11:00)
[2024-09-25] MEDS ORDERED: OMNIPAQUE 350 mg/mL 100 mL BTL 100 ML ONE (11:04)
--- NOTE | 2024-09-25 11:41 | VAS ---
EXAM:LOWER EXT VENOUS, BILATERALHISTORY:pain in limb, leg edema ro dvt; ROYER LE EDEMA/PAINCOMPARISON:None available.TECHNIQUE:Multiple rodas scale and color flow Doppler images of the deep venous system were obtained of the right and left lower extremity.FINDINGS:The deep venous system of the right and left lower extremities were evaluated from the level of the common femoral vein through the popliteal vein. Normal color flow and augmentation can be observed. In addition, normal compression is seen throughout the deep venous system.IMPRESSION:Negative for DVT.THIS IS AN ELECTRONICALLY VERIFIED FINAL [id number]/25/2024 11:34 AM - Electronically signed by Sunil Segura MD
--- NOTE | 2024-09-25 12:12 | CT ---
EXAM:BRAIN W/O CONHISTORY:AMS;Altered mental statusCOMPARISON:Head CT examination dated May 01, 2022.TECHNIQUE:Multiple axial images of the head were obtained from the skull base to the vertex without administration of IV contrast.Sagittal and coronal reformatted images were performed. Automated exposure control (AEC) was utilized to adjust the MA and/or kV.FINDINGS:Overall, the examination is stable compared to the prior study. There is moderate sulcal and cisternal prominence as well as atherosclerotic change in the proximal intracranial carotid and vertebral arteries, which is not out of proportion to the patient's stated age. There is diffuse CT density alteration seen in the periventricular white matter of the high and mid-convexity, which is likely in the setting of small vessel disease and not out of proportion to the patient's stated age. There is no pathologic ventricular dilatation or CT imaging evidence for hydrocephalus or herniation syndrome. No midline shift is evident. No acute intraparenchymal hemorrhage or mass can be identified. If there remains a strong concern for any intra-cranial neoplasm, then follow-up with CT or MR imaging of the brain would be more sensitive to exclude any intra-cranial mass lesion. No extra-axial fluid collections are seen. No alteration in the attenuation of the brain parenchyma can be identified to suggest acute or subacute ischemic change. Also, if clinical symptoms are concerning for an acute CVA, then follow-up MRI with DWI sequencing is recommended. The extracranial structures are unremarkable. The paranasal sinuses and mastoid air cells are relatively clear.IMPRESSION:1. No acute intracranial process or acute bleed identified. If there remains strong clinical concern for an acute CVA/ischemic event in this setting, then follow-up brain MRI with diffusion-weighted sequencing should be considered to definitively exclude acute cerebral ischemia, based on medical history and neurological assessment.2. Chronic appearing periventricular white matter microvascular disease.THIS IS AN ELECTRONICALLY VERIFIED FINAL [id number]/2024 12:09 PM - Electronically signed by Higinio Kwok MD
[2024-09-25] MEDS: ZOFRAN INJ 4 MG VIAL IVP PRN (12:50)
[2024-09-25] MEDS: MAG-OX TAB ONE (15:04)
--- NOTE | 2024-09-25 15:06 | CT ---
EXAMINATION:CTA, CHESTHISTORY:SOB, EVAL FOR PE;COMPARISON:None.TECHNIQUE:Contiguous axial CT images of the thorax following intravenous contrast. Images reviewed in the axial imaging plane with post processing thick slab MIP/3D volume images at a workstation.The above CT scan was done with automated exposure control and the mA and kV was adjusted to obtain quality images according to patient size.FINDINGS:The lungs are expanded. Centrilobular emphysema. [id number] central bronchiectasis lower lung newby. Linear shaped densities in both lower lobes probable parenchymal scar/subsegmental atelectatic changes. No focal areas of pulmonary consolidation. The central airways are patent. No pleural fluid collections.Mild cardiomegaly. Coronary artery calcifications. Mild fusiform shaped ectasia ascending thoracic aorta 3.8 cm diameter. No evidence of thoracic aortic dissection. 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 Normal enhancement of the pulmonary arteries.No pericardial effusion. No mediastinal or hilar adenopathy.Mild hiatal hernia. Esophageal wall thickening distal thoracic esophagus.Heterogeneous enhancement/mass in the left inferior thyroid lobe.Moderate spondylosis/dorsal kyphosis thoracic spine.IMPRESSION:No evidence of acute pulmonary embolism.Centrilobular emphysema. 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 Recommend outpatient follow-up thyroid ultrasound evaluation.THIS IS AN ELECTRONICALLY VERIFIED FINAL [id number]/2024 3:02 PM - Electronically signed by Stephani Rogers MD
[2024-09-25] MEDS ORDERED: ROBITUSSIN DM PO PRN (17:53)
[2024-09-25] MEDS ORDERED: TUSSIONEX PENNKINETIC SUSP PO PRN (17:53)
--- NOTE | 2024-09-25 18:16 | PCM.PROG ---
Progress Note Progress Note for Day of Date of Exam: 09/25/24 Subjective Subjective: PT IS 84 BF, ADMITTED WITH SEVERE LOWER EXREMITY EDEMA WITH INTRACTABLE RIGHT LEG PAIN. PT WAS STARTED ON IV LASIX WITH STRICT I&OS, IV ROCEPHIN. PT UC +>100K GRAM NEGATIVE RODS. PT HAS LOWER EXTREMITY US ORDERED. PT HAD AND ELEVATED DDIMER AND SOB. CTA OF CHEST ORDERED TO RO PE. PT HAS HAD INCREASED CONFUSION, POSSIBLY RELATED TO UTI. PLAN TO OBATIN CT HEAD RO CVA. PT IS NORMALLY AMBULATORY WITH A WALKER AND NO ASSISTANCE AND SHE REPORTS SHE CANNOT WALK SINCE SUNDAY. Past Medical Family Social History Allergies: Allergies No Known Drug Allergies Allergy (Verified 12/27/22 20:27) Vital Signs and I&O's Vital Signs: Vital Signs Temperature 98.5 F Temperature 98.1 F Pulse Rate 73 Pulse Rate 80 Pulse Rate 73 Respiratory Rate 15 Respiratory Rate 21 Respiratory Rate 15 Respiratory Rate 20 Respiratory Rate 20 Respiratory Rate 22 Respiratory Rate 19 Blood Pressure 169/82 Blood Pressure 156/74 Blood Pressure 160/80 Blood Pressure 161/83 Blood Pressure 156/78 Blood Pressure 148/76 O2 Sat by Pulse Oximetry 94 O2 Sat by Pulse Oximetry 95 O2 Sat by Pulse Oximetry 95 Intake and Output: Intake & Output 09/23/24 09/24/24 09/25/24 09/26/24 11:59 11:59 11:59 11:59 Intake Total 930 / 930 1070 / 1070 Output Total 2200 / 2200 1200 / 1200 Balance -1270 / -1270 -130 / -130 Physical Exam Oriented: Normal Eyes: Normal Nose: Normal Throat: Dry Respiratory: Diminished Cardiovascular: Bradycardia and Edema Auscultation: Bowel Sounds: Normal Tenderness: Normal Skin: Decreased Turgur Musculoskeletal: Right, Left, Leg, Back:Lumbar, Swelling and Motor Deficit Psychiatric: Normal Mood Description: Depressed Affect: Depressed Speech Pattern: Clear and Appropriate Laboratory and Diagnostics 09/25/24 04:32 09/25/24 04:32 Labs: 09/24/24 18:48 Urine,Clean Catch Urine Culture - Preliminary Laboratory WBC 7.0 X10^3/uL (3.6-10.0) 09/25/24 04:32 RBC 5.54 X10^6/uL (3.5-5.4) H 09/25/24 04:32 Hgb 12.8 g/dL (12.0-16.0) 09/25/24 04:32 Hct 39.8 % (36.0-47.0) 09/25/24 04:32 MCV 71.9 fL (80.0-100.0) L 09/25/24 04:32 MCH 23.1 pg (27.0-34.0) L 09/25/24 04:32 MCHC 32.1 g/dL (33.0-35.0) L 09/25/24 04:32 RDW 16.5 % (11.6-16.5) 09/25/24 04:32 Plt Count 190 X10^3/uL (150.0-450.0) 09/25/24 04:32 Plt Count Comment Adequate (ADEQUATE) 09/25/24 04:32 MPV 9.4 fL (7.4-11.0) 09/25/24 04:32 Neut % (Auto) 66.8 % (42.0-75.0) 09/25/24 04:32 Lymph % (Auto) 22.5 % (21.0-51.0) 09/25/24 04:32 [place] % (Auto) 8.8 % (0.0-13.0) 09/25/24 04:32 Eos % (Auto) 1.2 % (0.9-2.9) 09/25/24 04:32 Baso % (Auto) 0.7 % (0.2-1.0) 09/25/24 04:32 Neut # (Auto) 4.7 x10^3/uL (2.2-4.8) 09/25/24 04:32 Lymph # (Auto) 1.6 X10^3/uL (1.3-2.9) 09/25/24 04:32 [place] # (Auto) 0.6 x10^3/uL (0.3-0.8) 09/25/24 04:32 Eos # (Auto) 0.1 x10^3/uL (0.0-0.2) 09/25/24 04:32 Baso # (Auto) 0.0 X10^3/uL (0.0-0.1) 09/25/24 04:32 Absolute Nucleated RBC 0.1 /100WBC 09/25/24 04:32 Plt Morphology Comment Normal (NORMAL) 09/25/24 04:32 RBC Morphology Abnormal (NORMAL) A 09/25/24 04:32 Microcytosis Slight A 09/25/24 04:32 Target Cells 1+ A 09/25/24 04:32 D-Dimer 3.11 ug/ml (0.0-0.57) H 09/24/24 17:58 Sodium 141 mmol/L (136-145) 09/25/24 04:32 Corrected Sodium TNP 09/25/24 04:32 Potassium 3.9 mmol/L (3.5-5.1) 09/25/24 04:32 Chloride 104 mmol/L (98-107) 09/25/24 04:32 Carbon Dioxide 29.2 mmol/L (21-32) 09/25/24 04:32 BUN 10 mg/dL (7-18) 09/25/24 04:32 Creatinine 0.83 mg/dL (0.55-1.02) 09/25/24 04:32 Est GFR (MDRD) Af Amer > 60 (>60) 09/25/24 04:32 Est GFR (MDRD) Non-Af > 60 (>60) 09/25/24 04:32 Glucose 91 mg/dL (65-99) 09/25/24 04:32 Calcium 9.3 mg/dL (8.5-10.1) 09/25/24 04:32 Corrected Calcium 9.9 mg/dL (8.5-10.1) 09/25/24 04:32 Magnesium 1.8 mg/dL (2.0-2.9) L 09/25/24 04:32 Total Bilirubin 0.40 mg/dL (0.2-1.0) 09/25/24 04:32 AST 15 Units/L (15-37) 09/25/24 04:32 ALT 17 Units/L (12-78) 09/25/24 04:32 Alkaline Phosphatase 112 Units/L (46-116) 09/25/24 04:32 Creatine Kinase 133 Units/L (26-192) 09/24/24 17:58 Troponin I High Sens 5.3 ng/L (4.0-60.0) 09/24/24 17:58 B-Natriuretic Peptide 18.0 pg/mL (0-79) 09/24/24 17:58 Total Protein 7.2 g/dL (6.4-8.2) 09/25/24 04:32 Albumin 3.3 g/dL (3.4-5.0) L 09/25/24 04:32 Globulin 3.9 g/dL (2.5-4.5) 09/25/24 04:32 Albumin/Globulin Ratio 0.8 Ratio (1.1-2.1) L 09/25/24 04:32 Plan (1) CHF (congestive heart failure): Status: Acute Plan: CE AND EKG ON ADMISSION CXR, STRICT I&OS, BP CONTROL IV LASIX, BC AND UC, IV ROCEPHIN SUPPLEMENTAL O2, CTA CHEST RO PE PT/OT CONSULT (2) Lower extremity cellulitis: Status: Acute (3) Essential hypertension: Status: Acute (4) Urinary tract infection: Status: Acute (5) Generalized weakness: Status: Acute (6) Altered mental state: Status: Acute
[2024-09-26 05:14] LABS: BASOPHILS % (AUTO) 0.2 % (0.2-1.0); EOSINOPHILS # (AUTO) 0.1 x10^3/uL (0.0-0.2); EOSINOPHILS % (AUTO) 1.3 % (0.9-2.9); HEMATOCRIT 39.6 % (36.0-47.0); HEMOGLOBIN 12.6 g/dL (12.0-16.0); LYMPHOCYTES # (AUTO) 1.2 X10^3/uL (1.3-2.9); LYMPHOCYTES % (AUTO) 20.1 % (21.0-51.0); MEAN CORPUSCULAR HEMOGLOBIN 22.9 pg (27.0-34.0); MEAN CORPUSCULAR HGB CONC 31.9 g/dL (33.0-35.0); MEAN CORPUSCULAR VOLUME 71.9 fL (80.0-100.0); MEAN PLATELET VOLUME 8.7 fL (7.4-11.0); MONOCYTES # (AUTO) 0.8 x10^3/uL (0.3-0.8); NEUTROPHILS # (AUTO) 3.8 x10^3/uL (2.2-4.8); NEUTROPHILS % (AUTO) 64.4 % (42.0-75.0); PLATELET COUNT 199 X10^3/uL (150.0-450.0)
[2024-09-26 05:27] LABS: ALANINE AMINOTRANSFERASE 18 Units/L (12-78); ALKALINE PHOSPHATASE 107 Units/L (46-116); ASPARTATE AMINO TRANSFERASE 19 Units/L (15-37); BLOOD UREA NITROGEN 12 mg/dL (7-18); CALCIUM 9.1 mg/dL (8.5-10.1); CHLORIDE 100 mmol/L (98-107); COR CA(FOR HYPOALB) 9.9 mg/dL (8.5-10.1); GLUCOSE 91 mg/dL (65-99); MAGNESIUM 2.2 mg/dL (2.0-2.9); POTASSIUM 4.1 mmol/L (3.5-5.1); SODIUM 138 mmol/L (136-145); TOTAL PROTEIN 7.1 g/dL (6.4-8.2); eGFR NON BLACK RACES 56 (>60)
[2024-09-26 05:41] LABS: MICROCYTOSIS SLIGHT; PLATELET MORPHOLOGY COMMENT NORMAL (NORMAL); TARGET CELLS PRESENT
[2024-09-26 08:45] LABS: FREE T4 (FREE THYROXINE) 0.94 ng/dL (0.76-1.46); TSH (3RD GENERATION) 1.516 uIU/mL (0.358-3.74)
[2024-09-26] MEDS: SOLU-Medrol 40 MG VIAL IVP SCH (09:37)
[2024-09-26] MEDS: PULMICORT NEB TX 0.5 MG NEB SCH (09:53)
[2024-09-27 05:01] LABS: BASOPHILS % (AUTO) 0.1 % (0.2-1.0); EOSINOPHILS % (AUTO) 0.1 % (0.9-2.9); HEMATOCRIT 38.7 % (36.0-47.0); HEMOGLOBIN 12.3 g/dL (12.0-16.0); LYMPHOCYTES % (AUTO) 9.1 % (21.0-51.0); MEAN CORPUSCULAR HEMOGLOBIN 22.8 pg (27.0-34.0); MEAN CORPUSCULAR HGB CONC 31.8 g/dL (33.0-35.0); MEAN CORPUSCULAR VOLUME 71.7 fL (80.0-100.0); MONOCYTES % (AUTO) 9.5 % (0.0-13.0); NEUTROPHILS # (AUTO) 8.7 x10^3/uL (2.2-4.8); NEUTROPHILS % (AUTO) 81.2 % (42.0-75.0); PLATELET COUNT 202 X10^3/uL (150.0-450.0); RED BLOOD COUNT 5.39 X10^6/uL (3.5-5.4); RED CELL DISTRIBUTION WIDTH 15.9 % (11.6-16.5); WHITE BLOOD COUNT 10.8 X10^3/uL (3.6-10.0)
[2024-09-27 05:13] LABS: ALANINE AMINOTRANSFERASE 38 Units/L (12-78); ALBUMIN 2.7 g/dL (3.4-5.0); ALKALINE PHOSPHATASE 108 Units/L (46-116); ASPARTATE AMINO TRANSFERASE 39 Units/L (15-37); BLOOD UREA NITROGEN 25 mg/dL (7-18); CALCIUM 9.1 mg/dL (8.5-10.1); CARBON DIOXIDE 31.6 mmol/L (21-32); CHLORIDE 102 mmol/L (98-107); COR CA(FOR HYPOALB) 10.1 mg/dL (8.5-10.1); COR NA(FOR HYPERGLY) 139 mmol/L (136-145); CREATININE 1.09 mg/dL (0.55-1.02); GLUCOSE 130 mg/dL (65-99); POTASSIUM 4.2 mmol/L (3.5-5.1); SODIUM 138 mmol/L (136-145); eGFR NON BLACK RACES 51 (>60)
[2024-09-27 05:39] LABS: HYPOCHROMASIA 1+; MICROCYTOSIS SLIGHT; PLATELET MORPHOLOGY COMMENT NORMAL (NORMAL); TARGET CELLS PRESENT
--- NOTE | 2024-09-27 08:04 | RAD ---
EXAM:Right foot three viewsHISTORY:PainCOMPARISON:None r.br.br joint. Soft tissue swelling of the foot. Flexion deformity of several toes. There is no evidence for fracture or traumatic joint deformity.IMPRESSION:Osteopenia, 1st MTP joint osteoarthrosis and nonspecific soft tissue swelling.THIS IS AN ELECTRONICALLY VERIFIED FINAL [id number]/27/2024 8:00 AM - Electronically signed by Jarett Onofre MD
--- NOTE | 2024-09-27 08:05 | RAD ---
EXAM:Right knee two viewsHISTORY:PainCOMPARISON:None r.br.br osteophytes and synovial effusion. There is degenerative lateral translation of the tibia. 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
--- NOTE | 2024-09-27 20:13 | PCM.PROG ---
Progress Note Progress Note for Day of Date of Exam: 09/27/24 Subjective Subjective: History/Background 84-year-old black female, previously under Dr. Esposito's care. Admitted earlier in the week for CHF exacerbation, urinary tract infection, and a history of hypertension. Patient has chronic kidney disease stage 3a. Currently on Losartan for kidney protection. Patient reports a history of kidney stones. Clinical Observations The patient reports feeling better but mentions sore heels. Observed swelling in legs, though skin appears wrinkled indicating some reductio n in swelling. Lung sounds clear in front. Heart sounds good. The patient reports using 3 pillows to prop up while sleeping, indicating potential orthopnea. No current shortness of breath observed. The patient demonstrates some confusion and potential signs of mild dementia. The patient appears to be in good spirits despite recent health issues. Past Medical Family Social History Allergies: Allergies No Known Drug Allergies Allergy (Verified 12/27/22 20:27) Review of Systems ROS: No change since H&P Vital Signs and I&O's Vital Signs: Vital Signs Temperature 98.2 F Pulse Rate 88 Respiratory Rate 20 Blood Pressure 137/79 O2 Sat by Pulse Oximetry 95 Intake and Output: Intake & Output 09/25/24 09/26/24 09/27/24 09/28/24 11:59 11:59 11:59 11:59 Intake Total 930 / 930 1470 / 1470 1000 / 1000 970 / 970 Output Total 2200 / 2200 2200 / 2200 1800 / 1800 1100 / 1100 Balance -1270 / -1270 -730 / -730 -800 / -800 -130 / -130 Physical Exam Oriented: Normal Eyes: Normal Nose: Normal Throat: Dry Respiratory: Diminished Cardiovascular: Bradycardia and Edema Auscultation: Bowel Sounds: Normal Tenderness: Normal Skin: Decreased Turgur Musculoskeletal: Right, Left, Leg, Back:Lumbar, Swelling and Motor Deficit Psychiatric: Normal Mood Description: Depressed Affect: Depressed Speech Pattern: Clear and Appropriate Laboratory and Diagnostics 09/27/24 04:03 09/27/24 04:03 Labs: 09/24/24 17:58 Blood Blood Culture - Preliminary 09/24/24 17:45 Blood Blood Culture - Preliminary 09/24/24 18:48 Urine,Clean Catch Urine Culture - Final Escherichia Coli Laboratory WBC 10.8 X10^3/uL (3.6-10.0) H 09/27/24 04:03 RBC 5.39 X10^6/uL (3.5-5.4) 09/27/24 04:03 Hgb 12.3 g/dL (12.0-16.0) 09/27/24 04:03 Hct 38.7 % (36.0-47.0) 09/27/24 04:03 MCV 71.7 fL (80.0-100.0) L 09/27/24 04:03 MCH 22.8 pg (27.0-34.0) L 09/27/24 04:03 MCHC 31.8 g/dL (33.0-35.0) L 09/27/24 04:03 RDW 15.9 % (11.6-16.5) 09/27/24 04:03 Plt Count 202 X10^3/uL (150.0-450.0) 09/27/24 04:03 Plt Count Comment Adequate (ADEQUATE) 09/27/24 04:03 MPV 9.0 fL (7.4-11.0) 09/27/24 04:03 Neut % (Auto) 81.2 % (42.0-75.0) H 09/27/24 04:03 Lymph % (Auto) 9.1 % (21.0-51.0) L 09/27/24 04:03 [place] % (Auto) 9.5 % (0.0-13.0) 09/27/24 04:03 Eos % (Auto) 0.1 % (0.9-2.9) L 09/27/24 04:03 Baso % (Auto) 0.1 % (0.2-1.0) L 09/27/24 04:03 Neut # (Auto) 8.7 x10^3/uL (2.2-4.8) H 09/27/24 04:03 Lymph # (Auto) 1.0 X10^3/uL (1.3-2.9) L 09/27/24 04:03 [place] # (Auto) 1.0 x10^3/uL (0.3-0.8) H 09/27/24 04:03 Eos # (Auto) 0.0 x10^3/uL (0.0-0.2) 09/27/24 04:03 Baso # (Auto) 0.0 X10^3/uL (0.0-0.1) 09/27/24 04:03 Absolute Nucleated RBC 0.0 /100WBC 09/27/24 04:03 Plt Morphology Comment Normal (NORMAL) 09/27/24 04:03 RBC Morphology Abnormal (NORMAL) A 09/27/24 04:03 Hypochromasia 1+ A 09/27/24 04:03 Microcytosis Slight A 09/27/24 04:03 Target Cells Present 09/27/24 04:03 D-Dimer 3.11 ug/ml (0.0-0.57) H 09/24/24 17:58 Sodium 138 mmol/L (136-145) 09/27/24 04:03 Corrected Sodium 139 mmol/L (136-145) 09/27/24 04:03 Potassium 4.2 mmol/L (3.5-5.1) 09/27/24 04:03 Chloride 102 mmol/L (98-107) 09/27/24 04:03 Carbon Dioxide 31.6 mmol/L (21-32) 09/27/24 04:03 BUN 25 mg/dL (7-18) H 09/27/24 04:03 Creatinine 1.09 mg/dL (0.55-1.02) H 09/27/24 04:03 Est GFR (MDRD) Af Amer > 60 (>60) 09/27/24 04:03 Est GFR (MDRD) Non-Af 51 (>60) L 09/27/24 04:03 Glucose 130 mg/dL (65-99) H 09/27/24 04:03 Calcium 9.1 mg/dL (8.5-10.1) 09/27/24 04:03 Corrected Calcium 10.1 mg/dL (8.5-10.1) 09/27/24 04:03 Magnesium 2.2 mg/dL (2.0-2.9) 09/26/24 04:08 Total Bilirubin 0.20 mg/dL (0.2-1.0) 09/27/24 04:03 AST 39 Units/L (15-37) H 09/27/24 04:03 ALT 38 Units/L (12-78) 09/27/24 04:03 Alkaline Phosphatase 108 Units/L (46-116) 09/27/24 04:03 Creatine Kinase 133 Units/L (26-192) 09/24/24 17:58 Troponin I High Sens 5.3 ng/L (4.0-60.0) 09/24/24 17:58 B-Natriuretic Peptide 18.0 pg/mL (0-79) 09/24/24 17:58 Total Protein 7.0 g/dL (6.4-8.2) 09/27/24 04:03 Albumin 2.7 g/dL (3.4-5.0) L 09/27/24 04:03 Globulin 4.3 g/dL (2.5-4.5) 09/27/24 04:03 Albumin/Globulin Ratio 0.6 Ratio (1.1-2.1) L 09/27/24 04:03 Free T4 0.94 ng/dL (0.76-1.46) 09/26/24 04:08 TSH 3rd Generation 1.516 uIU/mL (0.358-3.74) 09/26/24 04:08 Plan (1) CHF (congestive heart failure): Status: Acute Plan: CE AND EKG ON ADMISSION CXR, STRICT I&OS, BP CONTROL IV LASIX, BC AND UC, IV ROCEPHIN SUPPLEMENTAL O2, CTA CHEST RO PE PT/OT CONSULT Plan/Recommendations Start Coreg (carvedilol) 6.25 mg BID to manage CHF. Decrease amlodipine from 10 mg daily to 2.5 mg daily to reduce risk of CHF exacerbations. Continue low dose amlodipine to help increase renal perfusion. Maintain Losartan for kidney function protection. Order echocardiogram for Sunday to assess heart strength. Encourage increased water intake to prevent kidney stone formation. Recommend consumption of yogurt and appropriate juices (avoiding high sugar content). Continue to monitor patient over the weekend. (2) Lower extremity cellulitis: Status: Acute (3) Essential hypertension: Status: Acute (4) Urinary tract infection: Status: Acute (5) Generalized weakness: Status: Acute (6) Altered mental state: Status: Acute
[2024-09-27] MEDS ORDERED: NORVASC TAB 2.5 MG ONE (20:50)
[2024-09-27] MEDS: NORVASC TAB 2.5 MG PO SCH (21:03)
[2024-09-28 05:37] LABS: BASOPHILS % (AUTO) 0.2 % (0.2-1.0); HEMATOCRIT 39.1 % (36.0-47.0); HEMOGLOBIN 12.3 g/dL (12.0-16.0); LYMPHOCYTES # (AUTO) 1.1 X10^3/uL (1.3-2.9); LYMPHOCYTES % (AUTO) 9.4 % (21.0-51.0); MEAN CORPUSCULAR HEMOGLOBIN 22.6 pg (27.0-34.0); MEAN CORPUSCULAR HGB CONC 31.6 g/dL (33.0-35.0); MEAN CORPUSCULAR VOLUME 71.6 fL (80.0-100.0); MEAN PLATELET VOLUME 9.3 fL (7.4-11.0); MONOCYTES # (AUTO) 0.9 x10^3/uL (0.3-0.8); MONOCYTES % (AUTO) 7.6 % (0.0-13.0); NEUTROPHILS # (AUTO) 9.5 x10^3/uL (2.2-4.8); NEUTROPHILS % (AUTO) 82.8 % (42.0-75.0); PLATELET COUNT 225 X10^3/uL (150.0-450.0); RED BLOOD COUNT 5.46 X10^6/uL (3.5-5.4); WHITE BLOOD COUNT 11.4 X10^3/uL (3.6-10.0)
[2024-09-28 05:46] LABS: ALANINE AMINOTRANSFERASE 46 Units/L (12-78); ALBUMIN 2.6 g/dL (3.4-5.0); ALKALINE PHOSPHATASE 97 Units/L (46-116); ASPARTATE AMINO TRANSFERASE 34 Units/L (15-37); BLOOD UREA NITROGEN 25 mg/dL (7-18); CALCIUM 9.1 mg/dL (8.5-10.1); CARBON DIOXIDE 30.4 mmol/L (21-32); CHLORIDE 101 mmol/L (98-107); COR CA(FOR HYPOALB) 10.2 mg/dL (8.5-10.1); COR NA(FOR HYPERGLY) 141 mmol/L (136-145); CREATININE 0.98 mg/dL (0.55-1.02); GLUCOSE 123 mg/dL (65-99); MAGNESIUM 1.9 mg/dL (2.0-2.9); POTASSIUM 3.8 mmol/L (3.5-5.1); SODIUM 140 mmol/L (136-145); eGFR NON BLACK RACES 57 (>60)
[2024-09-28 06:50] LABS: HYPOCHROMASIA 1+; MICROCYTOSIS SLIGHT; PLATELET MORPHOLOGY COMMENT NORMAL (NORMAL); TARGET CELLS PRESENT
[2024-09-28] MEDS: COREG TAB 6.25 MG PO SCH (08:37)
[2024-09-28] MEDS: K-DUR TAB 20 MEQ PO SCH (08:37)
[2024-09-28] MEDS: MAG-OX TAB PO SCH (08:47)
[2024-09-28] MEDS: NORVASC TAB 2.5 MG ONE (09:22)
[2024-09-28] MEDS: CONSULT PHARMACY - POTASSIUM & MAGNESIUM XX SCH (09:23)
[2024-09-28] MEDS: COLACE CAP 100 MG PO PRN (10:17)
[2024-09-28 12:54] LABS: RETICULOCYTE % 1.19 % (0.8-2.2)
--- NOTE | 2024-09-28 20:56 | PCM.PROG ---
Progress Note Progress Note for Day of Date of Exam: 09/28/24 Subjective Subjective: History/Background 84-year-old black female, previously under Dr. Esposito's care. Admitted earlier in the week for CHF exacerbation, urinary tract infection, and a history of hypertension. The patient has chronic kidney disease stage 3a. Currently on Losartan for kidney protection. The patient reports a history of kidney stones. History/Background The patient is 89 years old. She graduated from [employer] in 1974. She used to have oxygen at home but quit using it. She has been in the hospital for 5 days for CHF exacerbation. Clinical Observations Vital signs: Blood pressure: 142/85 Pulse: 81 Respirations: 19 (down from 26 on admission) Temperature: 98.2F Oxygen saturation: 93-95% on 2-liter nasal cannula Lab results: White blood cell count: 11,400 (up from 10,800 yesterday) Hemoglobin: 12.3 (near normal) MCV: 71.6 (low, indicating possible iron deficiency) Neutrophil count: 82.8% (up from 81.2% yesterday) Electrolytes: Normal Kidney function: normal Blood sugar: 123 Calcium: 10.2 (slightly elevated) Magnesium: 1.9 (near average) Liver function tests: normal Albumin: 2.6 -The patient reports feeling better but is concerned about constipation and difficulty getting out of bed. -The patient has been given Colace for constipation, but it has not been effective. Past Medical Family Social History Allergies: Allergies No Known Drug Allergies Allergy (Verified 12/27/22 20:27) Review of Systems ROS: No change since H&P ROS changes noted: Review of Systems: - Constitutional symptoms: Vital signs show improvement Vital Signs and I&O's Vital Signs: Vital Signs Temperature 98.6 F Pulse Rate 87 Pulse Rate 80 Respiratory Rate 14 Blood Pressure 167/86 O2 Sat by Pulse Oximetry 97 O2 Sat by Pulse Oximetry 100 Objective: - Vital Signs: - BP 142/85 - HR 81 - RR 19 (improved from 26 at admission) - Temperature 98.2F - SpO2 93-95% on 2L nasal cannula - Laboratory Results: - WBC 11,400 (increased from 10,800 yesterday) - Hemoglobin 12.3 - MCV 71.6 (low, indicating possible iron deficiency) - Neutrophils 82.8% (increased from 81.2% yesterday) - Electrolytes: Within normal limits - Renal function: Normal - Blood glucose: 123 - Corrected calcium: 10.2 (mildly elevated) - Magnesium: 1.9 - Liver function tests: Normal - Albumin: 2.6 Intake and Output: Intake & Output 09/26/24 09/27/24 09/28/24 09/29/24 11:59 11:59 11:59 11:59 Intake Total 1470 / 1470 1000 / 1000 1590 / 1590 1100 / 1100 Output Total 2200 / 2200 1800 / 1800 3100 / 3100 1200 / 1200 Balance -730 / -730 -800 / -800 -1510 / -1510 -100 / -100 Physical Exam Oriented: Normal Eyes: Normal Nose: Normal Throat: Dry Respiratory: Diminished Cardiovascular: Bradycardia and Edema Auscultation: Bowel Sounds: Normal Tenderness: Normal Skin: Decreased Turgur Musculoskeletal: Right, Left, Leg, Back:Lumbar, Swelling and Motor Deficit Psychiatric: Normal Mood Description: Depressed Affect: Depressed Speech Pattern: Clear and Appropriate Laboratory and Diagnostics 09/28/24 04:13 09/28/24 04:13 Labs: 09/24/24 17:58 Blood Blood Culture - Preliminary 09/24/24 17:45 Blood Blood Culture - Preliminary 09/24/24 18:48 Urine,Clean Catch Urine Culture - Final Escherichia Coli Laboratory WBC 11.4 X10^3/uL (3.6-10.0) H 09/28/24 04:13 RBC 5.46 X10^6/uL (3.5-5.4) H 09/28/24 04:13 Hgb 12.3 g/dL (12.0-16.0) 09/28/24 04:13 Hct 39.1 % (36.0-47.0) 09/28/24 04:13 MCV 71.6 fL (80.0-100.0) L 09/28/24 04:13 MCH 22.6 pg (27.0-34.0) L 09/28/24 04:13 MCHC 31.6 g/dL (33.0-35.0) L 09/28/24 04:13 RDW 16.0 % (11.6-16.5) 09/28/24 04:13 Plt Count 225 X10^3/uL (150.0-450.0) 09/28/24 04:13 Plt Count Comment Adequate (ADEQUATE) 09/28/24 04:13 MPV 9.3 fL (7.4-11.0) 09/28/24 04:13 Neut % (Auto) 82.8 % (42.0-75.0) H 09/28/24 04:13 Lymph % (Auto) 9.4 % (21.0-51.0) L 09/28/24 04:13 [place] % (Auto) 7.6 % (0.0-13.0) 09/28/24 04:13 Eos % (Auto) 0.0 % (0.9-2.9) L 09/28/24 04:13 Baso % (Auto) 0.2 % (0.2-1.0) 09/28/24 04:13 Neut # (Auto) 9.5 x10^3/uL (2.2-4.8) H 09/28/24 04:13 Lymph # (Auto) 1.1 X10^3/uL (1.3-2.9) L 09/28/24 04:13 [place] # (Auto) 0.9 x10^3/uL (0.3-0.8) H 09/28/24 04:13 Eos # (Auto) 0.0 x10^3/uL (0.0-0.2) 09/28/24 04:13 Baso # (Auto) 0.0 X10^3/uL (0.0-0.1) 09/28/24 04:13 Absolute Nucleated RBC 0.0 /100WBC 09/28/24 04:13 Plt Morphology Comment Normal (NORMAL) 09/28/24 04:13 RBC Morphology Abnormal (NORMAL) A 09/28/24 04:13 Hypochromasia 1+ A 09/28/24 04:13 Microcytosis Slight A 09/28/24 04:13 Target Cells Present 09/28/24 04:13 Absolute Retic 0.0654 10^6/uL 09/28/24 04:13 Percent Retic 1.19 % (0.8-2.2) 09/28/24 04:13 D-Dimer 3.11 ug/ml (0.0-0.57) H 09/24/24 17:58 Sodium 140 mmol/L (136-145) 09/28/24 04:13 Corrected Sodium 141 mmol/L (136-145) 09/28/24 04:13 Potassium 3.8 mmol/L (3.5-5.1) 09/28/24 04:13 Chloride 101 mmol/L (98-107) 09/28/24 04:13 Carbon Dioxide 30.4 mmol/L (21-32) 09/28/24 04:13 BUN 25 mg/dL (7-18) H 09/28/24 04:13 Creatinine 0.98 mg/dL (0.55-1.02) 09/28/24 04:13 Est GFR (MDRD) Af Amer > 60 (>60) 09/28/24 04:13 Est GFR (MDRD) Non-Af 57 (>60) L 09/28/24 04:13 Glucose 123 mg/dL (65-99) H 09/28/24 04:13 Calcium 9.1 mg/dL (8.5-10.1) 09/28/24 04:13 Corrected Calcium 10.2 mg/dL (8.5-10.1) H 09/28/24 04:13 Magnesium 1.9 mg/dL (2.0-2.9) L 09/28/24 04:13 Iron 41 ug/dL (50-175) L 09/28/24 04:13 TIBC 200 ug/dL (250-450) L 09/28/24 04:13 Transferrin 152 mg/dL (202-364) L 09/28/24 04:13 Ferritin 172 ng/mL (8-252) 09/28/24 04:13 Total Bilirubin 0.20 mg/dL (0.2-1.0) 09/28/24 04:13 AST 34 Units/L (15-37) 09/28/24 04:13 ALT 46 Units/L (12-78) 09/28/24 04:13 Alkaline Phosphatase 97 Units/L (46-116) 09/28/24 04:13 Creatine Kinase 133 Units/L (26-192) 09/24/24 17:58 Troponin I High Sens 5.3 ng/L (4.0-60.0) 09/24/24 17:58 B-Natriuretic Peptide 8.8 pg/mL (0-79) 09/28/24 04:13 Total Protein 7.0 g/dL (6.4-8.2) 09/28/24 04:13 Albumin 2.6 g/dL (3.4-5.0) L 09/28/24 04:13 Globulin 4.4 g/dL (2.5-4.5) 09/28/24 04:13 Albumin/Globulin Ratio 0.6 Ratio (1.1-2.1) L 09/28/24 04:13 Vitamin B12 459 pg/mL (193-986) 09/28/24 04:13 Folate 14.2 ng/mL (>8.6) 09/28/24 04:13 Free T4 0.94 ng/dL (0.76-1.46) 09/26/24 04:08 TSH 3rd Generation 1.516 uIU/mL (0.358-3.74) 09/26/24 04:08 Plan (1) CHF (congestive heart failure): Status: Acute Plan: CE AND EKG ON ADMISSION CXR, STRICT I&OS, BP CONTROL IV LASIX, BC AND UC, IV ROCEPHIN SUPPLEMENTAL O2, CTA CHEST RO PE PT/OT CONSULT 28 September 2024 Perform echocardiogram to assess heart function and determine if diuretic therapy is necessary. 27 September 2024 Plan/Recommendations Start Coreg (carvedilol) 6.25 mg BID to manage CHF. Decrease amlodipine from 10 mg daily to 2.5 mg daily to reduce risk of CHF exacerbations. Continue low dose amlodipine to help increase renal perfusion. Maintain Losartan for kidney function protection. Order echocardiogram for Sunday to assess heart strength. Encourage increased water intake to prevent kidney stone formation. Recommend consumption of yogurt and appropriate juices (avoiding high sugar content). Continue to monitor patient over the weekend. (2) Lower extremity cellulitis: Status: Resolved (3) Essential hypertension: Status: Chronic (4) Urinary tract infection: Status: Acute Qualifiers: Urinary tract infection type: acute cystitis Hematuria presence: with hematuria Qualified Code(s): N30.01 - Acute cystitis with hematuria Narrative Support Text: The patient is UTI secondary to issue a week E. coli it is sensitive to Rocephin. Plan: Continue Rocephin at 1 g IV daily for patient's urinary tract infection. (5) Generalized weakness: Status: Chronic (6) Altered mental state: Status: Resolved (7) Constipation: Status: Acute Qualifiers: Constipation type: chronic idiopathic constipation Qualified Code(s): K59.04 - Chronic idiopathic constipation Plan: Plan/Recommendations: Administer 30 ml of milk of magnesia for constipation. Reassess tomorrow for potential discharge. Continue monitoring vital signs and lab values. (8) Microcytic hypochromic anemia: Status: Acute Plan: Check anemia panel today due to low MCV.
[2024-09-28] MEDS: MILK OF MAGNESIA PO PRN (21:22)
[2024-09-29 04:55] LABS: BASOPHILS % (AUTO) 0.1 % (0.2-1.0); HEMATOCRIT 42.6 % (36.0-47.0); HEMOGLOBIN 13.7 g/dL (12.0-16.0); LYMPHOCYTES # (AUTO) 1.3 X10^3/uL (1.3-2.9); LYMPHOCYTES % (AUTO) 11.8 % (21.0-51.0); MEAN CORPUSCULAR HEMOGLOBIN 22.9 pg (27.0-34.0); MEAN CORPUSCULAR HGB CONC 32.1 g/dL (33.0-35.0); MEAN CORPUSCULAR VOLUME 71.3 fL (80.0-100.0); MEAN PLATELET VOLUME 8.7 fL (7.4-11.0); MONOCYTES # (AUTO) 0.8 x10^3/uL (0.3-0.8); MONOCYTES % (AUTO) 7.7 % (0.0-13.0); NEUTROPHILS # (AUTO) 8.8 x10^3/uL (2.2-4.8); NEUTROPHILS % (AUTO) 80.4 % (42.0-75.0); PLATELET COUNT 272 X10^3/uL (150.0-450.0); RED BLOOD COUNT 5.98 X10^6/uL (3.5-5.4)
[2024-09-29 05:04] LABS: ALANINE AMINOTRANSFERASE 48 Units/L (12-78); ALBUMIN 2.8 g/dL (3.4-5.0); ALKALINE PHOSPHATASE 105 Units/L (46-116); ASPARTATE AMINO TRANSFERASE 28 Units/L (15-37); BLOOD UREA NITROGEN 26 mg/dL (7-18); CALCIUM 9.2 mg/dL (8.5-10.1); CARBON DIOXIDE 35.6 mmol/L (21-32); CHLORIDE 100 mmol/L (98-107); COR CA(FOR HYPOALB) 10.2 mg/dL (8.5-10.1); COR NA(FOR HYPERGLY) 141 mmol/L (136-145); CREATININE 1.05 mg/dL (0.55-1.02); GLUCOSE 116 mg/dL (65-99); MAGNESIUM 2.5 mg/dL (2.0-2.9); POTASSIUM 3.9 mmol/L (3.5-5.1); SODIUM 141 mmol/L (136-145); TOTAL PROTEIN 7.4 g/dL (6.4-8.2); eGFR NON BLACK RACES 53 (>60)
[2024-09-29 05:53] LABS: HYPOCHROMASIA 1+; OVALOCYTES PRESENT; PLATELET MORPHOLOGY COMMENT NORMAL (NORMAL); TARGET CELLS PRESENT
[2024-09-29] MEDS ORDERED: NORVASC TAB 2.5 MG ONE (08:31)
[2024-09-29] MEDS: DULCOLAX SUPPOSITORY 10 MG RECTAL ONE (08:45)
--- NOTE | 2024-09-29 09:57 | RAD ---
EXAM:Portable chestHISTORY:Shortness of breathCOMPARISON:09/24/2024FINDINGS:Judy ent is rotated to the left. Heart size is accentuated by mild hypoinflation. It is likely upper limits normal. No congestive heart failure or infiltrates are identified. No pleural effusions or pneumothoraces identified. Bony thorax is unremarkable.IMPRESSION:No significant abnormality identifiedTHIS IS AN ELECTRONICALLY VERIFIED FINAL [id number]/29/2024 9:53 AM - Electronically signed by Jace Heredia MD
[2024-09-30 04:50] LABS: BASOPHILS % (AUTO) 0.3 % (0.2-1.0); EOSINOPHILS % (AUTO) 0.1 % (0.9-2.9); HEMOGLOBIN 13.7 g/dL (12.0-16.0); LYMPHOCYTES # (AUTO) 1.6 X10^3/uL (1.3-2.9); LYMPHOCYTES % (AUTO) 15.4 % (21.0-51.0); MEAN CORPUSCULAR HEMOGLOBIN 23.3 pg (27.0-34.0); MEAN CORPUSCULAR HGB CONC 32.5 g/dL (33.0-35.0); MEAN CORPUSCULAR VOLUME 71.7 fL (80.0-100.0); MEAN PLATELET VOLUME 8.6 fL (7.4-11.0); MONOCYTES # (AUTO) 0.9 x10^3/uL (0.3-0.8); MONOCYTES % (AUTO) 8.6 % (0.0-13.0); NEUTROPHILS # (AUTO) 7.7 x10^3/uL (2.2-4.8); NEUTROPHILS % (AUTO) 75.6 % (42.0-75.0); PLATELET COUNT 258 X10^3/uL (150.0-450.0); RED BLOOD COUNT 5.87 X10^6/uL (3.5-5.4); RED CELL DISTRIBUTION WIDTH 15.7 % (11.6-16.5); WHITE BLOOD COUNT 10.2 X10^3/uL (3.6-10.0)
[2024-09-30 05:04] LABS: ALANINE AMINOTRANSFERASE 42 Units/L (12-78); ALBUMIN 2.5 g/dL (3.4-5.0); ALKALINE PHOSPHATASE 99 Units/L (46-116); ASPARTATE AMINO TRANSFERASE 21 Units/L (15-37); BLOOD UREA NITROGEN 25 mg/dL (7-18); CALCIUM 8.9 mg/dL (8.5-10.1); CARBON DIOXIDE 34.2 mmol/L (21-32); CHLORIDE 101 mmol/L (98-107); COR CA(FOR HYPOALB) 10.1 mg/dL (8.5-10.1); CREATININE 1.04 mg/dL (0.55-1.02); GLUCOSE 105 mg/dL (65-99); SODIUM 139 mmol/L (136-145); TOTAL PROTEIN 6.9 g/dL (6.4-8.2); eGFR NON BLACK RACES 54 (>60)
[2024-09-30 05:18] LABS: HYPOCHROMASIA 1+; MICROCYTOSIS SLIGHT; PLATELET MORPHOLOGY COMMENT NORMAL (NORMAL); TARGET CELLS PRESENT
[2024-09-30] MEDS ORDERED: NORVASC TAB 2.5 MG ONE (09:13)
[2024-09-30] MEDS ORDERED: NS 250 ML IV 250 ML IV ONE (09:31)
[2024-09-30] MEDS: VIBRAMYCIN PO SCH (09:44)
[2024-09-30] MEDS: NS 250 ML IV 250 ML IV PRN (09:45)
[2024-09-30] MEDS: VALIUM INJ IVP PRN (12:20)
[2024-09-30 12:32] VITALS: BP 146/83; PULSE 64; RESP 18; TEMP 97.7; O2SAT 93
== END 2024-09-30 14:25 | disposition home health service (06) ==
LOC: ICU
PROVIDERS: ADMIT Internal Medicine; ATTEND Internal Medicine
DX: B96.29 Other Escherichia coli [E. coli] as the cause of diseases classified elsewhere; N39.0 Urinary tract infection, site not specified; R60.0 Localized edema; N18.31 Chronic kidney disease, stage 3a; Z16.29 Resistance to other single specified antibiotic; I13.0 Hypertensive heart and chronic kidney disease with heart failure and stage 1 through stage 4 chronic kidney disease, or unspecified chronic kidney disease; R41.82 Altered mental status, unspecified; K59.04 Chronic idiopathic constipation; I50.9 Heart failure, unspecified; M19.90 Unspecified osteoarthritis, unspecified site; Z16.11 Resistance to penicillins; E83.42 Hypomagnesemia; R79.1 Abnormal coagulation profile; R53.1 Weakness; R62.7 Adult failure to thrive; R06.02 Shortness of breath; D50.8 Other iron deficiency anemias; Z16.23 Resistance to quinolones and fluoroquinolones; K21.9 Gastro-esophageal reflux disease without esophagitis; R26.89 Other abnormalities of gait and mobility; D63.1 Anemia in chronic kidney disease; R94.31 Abnormal electrocardiogram [ECG] [EKG]; J20.8 Acute bronchitis due to other specified organisms